=== PATIENT | female | born 1955 | race Caucasian/White ===

== ENCOUNTER → 2019-12-18 12:00 | Outpatient (BNVA) | payer MEDICARE, OTHER, SELFPAY | PROVIDERS: Family Provider Nurse Practitioner Family; PCP Nurse Practitioner Family; Visit Provider Nurse Practitioner Family | DX: L03.313 Cellulitis of chest wall (principal); L29.9 Pruritus, unspecified; W57.XXXA Bitten or stung by nonvenomous insect and other nonvenomous arthropods, initial encounter | CPT/HCPCS: 80053; 85025; 86618; 86666; 86757 ==

== ENCOUNTER 2020-09-14 14:19 | Outpatient (CLI) | payer MEDICARE, SELFPAY ==
--- NOTE | 2020-09-14 14:15 | USCV_ITS ---
Joan Arciniega Age: 65 Gender: F : 1955 Exam Date: 09/14/2020 14:52 Ordering Phys: Kelsey Morejon MD ([email or web address]) Technologist: China Cabral Exam Location: [facility] – [place] Indication: Chest pain BP: / HR: 59 Rhythm: Sinus Technical Quality: Suboptimal MEASUREMENTS (Male / Female) Normal Values 2D ECHO LV Diastolic Diameter PLAX 4.7 cm 4.2 - 5.9 / 3.9 - 5.3 cm LV Systolic Diameter PLAX 3.6 cm LV Chamber Size 4.0 cm IVS Diastolic Thickness 1.0 cm 0.6 - 1.0 / 0.6 - 0.9 cm IVS Systolic Thickness 1.2 cm LVPW Diastolic Thickness 0.8 cm 0.6 - 1.0 / 0.6 - 0.9 cm LVPW Systolic Thickness 1.1 cm RV Chamber Size 3.0 cm LVOT Diameter 2.0 cm LV Ejection Fraction 2D Teich 48.0 % LV Ejection Fraction MOD 2C 59.9 % LV Ejection Fraction 2C AL 62.0 % LA Diameter 3.6 cm LA Width 2.7 cm LA Height 5.7 cm RA Width 2.9 cm RA Height 4.6 cm Aorta at Sinotubular Diameter 2.4 cm M-MODE LV Diastolic Diameter MM 4.4 cm 4.2 - 5.9 / 3.9 - 5.3 cm LV Systolic Diameter MM 3.1 cm LV Ejection Fraction MM Teich 57.3 % IVS Diastolic Thickness MM 1.2 cm 0.6 - 1.0 / 0.6 - 0.9 cm IVS Systolic Thickness MM 1.3 cm LVPW Diastolic Thickness MM 1.5 cm 0.6 - 1.0 / 0.6 - 0.9 cm LVPW Systolic Thickness MM 1.5 cm Aortic Annulus Diameter 2.9 cm LA Ao Ratio MM 1.4 MV E Point Septal Separation 0.7 cm DOPPLER AV Peak Velocity 132.0 cm/s LVOT Peak Velocity 116.0 cm/s AV Area Cont Eq vti 2.5 cm squared AV Area Cont Eq pk 2.6 cm squared MV Area PHT 4.2 cm squared Mitral E to A Ratio 0.8 MV E' Velocity 77.0 cm/s TV Peak E Velocity 48.0 cm/s Right Atrial Pressure 3.0 mmHg PV Peak Velocity 93.0 cm/s RV Acceleration Time 0.1 s RV Ejection Time 0.3 s RV AcT/ET 0.3 FINDINGS Left Ventricle Normal left ventricular cavity size. Normal left ventricular systolic function. No regional wall motion abnormalities. Left ventricular ejection fraction is estimated at 57 %. Grade I/IV diastolic dysfunction (abnormal relaxation filling pattern), normal to mildly elevated filling pressures. Right Ventricle The right ventricle is normal in size and function. RVSP could not be calculated due to incomplete tricuspid regurgitation velocity profile. Right Atrium The right atrium is normal in size. Left Atrium The left atrium is normal in size. Mitral Valve Moderately thickened mitral valve. No mitral valve stenosis. Trace mitral valve regurgitation. Moderate mitral annular calcification. Aortic Valve Moderate aortic valve calcification. No aortic valve stenosis. No aortic valve regurgitation. Tricuspid Valve Structurally normal tricuspid valve without significant stenosis or regurgitation. Pulmonic Valve Structurally normal pulmonic valve without significant stenosis. There is no pulmonic regurgitation. Pericardium Normal pericardium without effusion. Aorta Normal ascending aorta dimension. CONCLUSIONS 1-Normal left ventricular cavity size. Normal left ventricular systolic function. No regional wall motion abnormalities. Left ventricular ejection fraction is estimated at 57 %. Grade I/IV diastolic dysfunction (abnormal relaxation filling pattern), normal to mildly elevated filling pressures. 2-Moderately thickened mitral valve. No mitral valve stenosis. Trace mitral valve regurgitation. Moderate mitral annular calcification. 3-Moderate aortic valve calcification. No aortic valve stenosis. No aortic valve regurgitation. 4-Structurally normal tricuspid valve without significant stenosis or regurgitation. Pulmonary artery systolic pressure is norm. 5-There is no pericardial effusion. 6-The right ventricle is normal in size and function. RVSP could not be calculated due to incomplete tricuspid regurgitation velocity profile. 7-Right atrial pressure is around 5 mm of mercury. 8-No significant change since the prior echocardiogram study of 10/04/2015.. lFynn Cohen MD (Electronically Signed) Final Date: 14 September 2020 20:39 S
== END 2020-09-14 14:20 | disposition home or self-care (01) ==
LOC: US 14:22
PROVIDERS: PCP Nurse Practitioner Family; Visit Provider Internal Medicine Cardiovascular Disease
DX: R07.89 Other chest pain (principal); I08.0 Rheumatic disorders of both mitral and aortic valves
CPT/HCPCS: 93306

== ENCOUNTER → 2021-09-15 12:07 | Outpatient (BNVA) | payer MEDICARE, SELFPAY | PROVIDERS: PCP Nurse Practitioner Family; Visit Provider Nurse Practitioner Family | DX: J32.0 Chronic maxillary sinusitis (principal); E78.5 Hyperlipidemia, unspecified; I10 Essential (primary) hypertension; E11.9 Type 2 diabetes mellitus without complications; E03.9 Hypothyroidism, unspecified; N95.9 Unspecified menopausal and perimenopausal disorder; Z12.39 Encounter for other screening for malignant neoplasm of breast | CPT/HCPCS: 80053; 80061; 83036; 84443 ==

== ENCOUNTER → 2021-10-09 14:07 | Outpatient (BNVA) | payer MEDICARE, SELFPAY | PROVIDERS: PCP Nurse Practitioner Family; Visit Provider Internal Medicine Cardiovascular Disease | DX: I47.1 Supraventricular tachycardia (principal); I10 Essential (primary) hypertension; E78.5 Hyperlipidemia, unspecified; I25.10 Atherosclerotic heart disease of native coronary artery without angina pectoris; E11.9 Type 2 diabetes mellitus without complications; Z79.84 Long term (current) use of oral hypoglycemic drugs | CPT/HCPCS: 99213 ==

== ENCOUNTER 2021-10-13 14:38 | Outpatient (CLI) | payer MEDICARE, SELFPAY ==
--- NOTE | 2021-10-13 14:52 | MM_ITS ---
WS: [id number] LEFT 3D TOMOSYNTHESIS DIGITAL MAMMOGRAPHY WITH CAD CLINICAL INFORMATION: HX OF BREAST CA;RT MAST COMPARISON: [id number] TECHNIQUE: 4 views of the left breast were obtained. FINDINGS: Scattered fibroglandular densities of the left breast. Punctate and lucent centered calcifications. N umerous clusters of punctate calcifications similar to previous. No suspicious focal mass, asymmetry, calcifications, or architectural distortion. No evidence of stuart gnancy. MM/[place] [id number] IMPRESSION: BI-RADS: 2-Benign FOLLOW UP: 1 Year Follow-up Recommend return to annual diagnostic mammography.
--- NOTE | 2021-10-13 15:03 | XR_ITS ---
WS: [id number] SCREENING DEXA SCAN [employer]™ CLINICAL INFORMATION: screening COMPARISON: None. FINDINGS: The L1-L4 bone mineral density measures 1.561 g/cm2. This corresponds to a T score score of 3.2 and Z score of 4.0. Left femoral neck bone mineral density measures 1.024 g/cm2. This corresponds to a T score of 0.1 and Z score of 0.9. Right femoral neck bone mineral density measures 0.970 g/cm2. This corresponds to a T score -0.3of an d Z score of 0.4. Mean femoral neck bone mineral density measures 0.997 g/cm2. This corresponds to a T score of -0.1 an d Z score of 0.7. XR/XR DEXA axial skeleton* [id number] IMPRESSION: Normal bone mineralization. Patient's FRAX calculated 10 year probability for major osteoporotic fracture i s 7.3 % and osteoporotic hip fracture is 0.5%.
== END 2021-10-13 14:39 | disposition home or self-care (01) ==
LOC: RAD 14:46
PROVIDERS: PCP Nurse Practitioner Family; Visit Provider Nurse Practitioner Family
DX: Z85.3 Personal history of malignant neoplasm of breast (principal); N95.9 Unspecified menopausal and perimenopausal disorder
CPT/HCPCS: 77061; 77080

== ENCOUNTER → 2021-12-20 09:36 | Outpatient (BNVA) | payer MEDICARE, SELFPAY | PROVIDERS: PCP Nurse Practitioner Family; Visit Provider Nurse Practitioner Family | DX: S62.616A Displaced fracture of proximal phalanx of right little finger, initial encounter for closed fracture (principal); X58.XXXA Exposure to other specified factors, initial encounter; M79.641 Pain in right hand | CPT/HCPCS: 73130 ==

== ENCOUNTER → 2021-12-22 10:33 | Outpatient (BNVA) | payer MEDICARE, SELFPAY | PROVIDERS: PCP Nurse Practitioner Family; Referring Provider Nurse Practitioner Family; Visit Provider Nurse Practitioner Family | DX: S62.646A Nondisplaced fracture of proximal phalanx of right little finger, initial encounter for closed fracture (principal); W23.0XXA Caught, crushed, jammed, or pinched between moving objects, initial encounter | CPT/HCPCS: 99213; 99214 ==

== ENCOUNTER → 2022-01-15 14:12 | Outpatient (BNVA) | payer MEDICARE, SELFPAY | PROVIDERS: PCP Nurse Practitioner Family; Visit Provider Nurse Practitioner Family | DX: S62.646A Nondisplaced fracture of proximal phalanx of right little finger, initial encounter for closed fracture (principal); X58.XXXA Exposure to other specified factors, initial encounter | CPT/HCPCS: 73130 ==

== ENCOUNTER → 2022-01-24 17:26 | Outpatient (BNVA) | payer MEDICARE, SELFPAY | PROVIDERS: PCP Nurse Practitioner Family; Visit Provider Nurse Practitioner Family | DX: S40.861A Insect bite (nonvenomous) of right upper arm, initial encounter (principal); W57.XXXA Bitten or stung by nonvenomous insect and other nonvenomous arthropods, initial encounter | CPT/HCPCS: 86618; 86666; 86757 ==

== ENCOUNTER → 2022-05-10 15:35 | Outpatient (BNVA) | payer MEDICARE, SELFPAY | PROVIDERS: PCP Nurse Practitioner Family; Visit Provider Podiatrist Foot & Ankle Surgery | DX: I73.9 Peripheral vascular disease, unspecified (principal); E11.8 Type 2 diabetes mellitus with unspecified complications; M20.41 Other hammer toe(s) (acquired), right foot; M20.42 Other hammer toe(s) (acquired), left foot; M21.41 Flat foot [pes planus] (acquired), right foot; M21.42 Flat foot [pes planus] (acquired), left foot; E11.42 Type 2 diabetes mellitus with diabetic polyneuropathy; L60.3 Nail dystrophy; Z79.84 Long term (current) use of oral hypoglycemic drugs | CPT/HCPCS: 11721 ==

== ENCOUNTER → 2022-05-22 11:36 | Outpatient (BNVA) | payer MEDICARE, SELFPAY | PROVIDERS: PCP Nurse Practitioner Family; Visit Provider Nurse Practitioner Family | DX: R10.12 Left upper quadrant pain (principal); I10 Essential (primary) hypertension; E78.5 Hyperlipidemia, unspecified; E11.9 Type 2 diabetes mellitus without complications; E03.9 Hypothyroidism, unspecified; Z98.84 Bariatric surgery status | CPT/HCPCS: 74018; 80053; 80061; 82043; 82607; 82746; 83036; 83550; 84443 ==

== ENCOUNTER 2022-05-30 08:32 | Oncology outpatient (recurring) (ONCR) | payer MEDICARE, SELFPAY | END 2022-05-30 23:59 | disposition home or self-care (01) | LOC: ONCMED 08:32 | PROVIDERS: PCP Nurse Practitioner Family; Visit Provider Internal Medicine Medical Oncology | DX: C50.811 Malignant neoplasm of overlapping sites of right female breast (principal); Z17.1 Estrogen receptor negative status [ER-]; Z90.11 Acquired absence of right breast and nipple; C79.51 Secondary malignant neoplasm of bone; Z92.21 Personal history of antineoplastic chemotherapy | CPT/HCPCS: 99204 ==

== ENCOUNTER 2022-06-23 14:59 | Emergency (ER) | payer MEDICARE, SELFPAY ==
[2022-06-23 15:05] VITALS: BP 153/84; PULSE 86; RESP 18; TEMP 36.6; O2SAT 98; BMI 32.8
--- NOTE | 2022-06-23 16:00 | W.ED.EXTPRO ---
HPI - Extremity Problem General: Chief complaint: Extremity Injury, Upper Stated complaint: fall, right upper arm injury Time Seen by Provider: 06/23/22 16:00 History of Present Illness: Ms. Núñez is a 67-year-old lady with history of hypertension, hyperlipidemia, diabetes, history of breast cancer status post completion of therapy presenting to the emergency department due to arm pain. She reports being at her baseline health and tripping around 1:00 yesterday over a lump on a rug. She denies specific provoking events or factors. He immediately had pain and since that time has had continued pain in the right upper extremity. Denies head strike or loss of consciousness. Denies other pain. No other specific changes in health, exacerbating, or alleviating factors identified. Onset (ago): day(s) Pain Consistency: constant Location: right and upper extremity Quality: stabbing and aching Exacerbating factors: range of motion and palpation Review of Systems General: Reports: 10 or more systems reviewed and unremarkable except in HPI and below PFSH ED PFSH: Medical History ASHD (arteriosclerotic heart disease) Diabetes mellitus Hx of osteomyelitis HX: breast cancer Hyperlipidemia Hypertension Hypothyroidism Neuropathy Proximal humerus fracture Surgical History History of bariatric surgery (2015) Gastric sleeve procedure History of rectal surgery (1996) Repair of perirectal abscess Hx of cholecystectomy (2015) Hx of total mastectomy of right breast (2003) Right modified radical mastectomy with TRAM flap reconstruction Family History Grandfather CAD (coronary artery disease) Stroke Family/Other Diabetes Father Hypertension Dementia Lung disease Mother Cancer Denies family history of Clotting disorder Chronic kidney disease (CKD) Suicide Anesthesia complication Bleeding disorder Social History Smoking and tobacco status: never smoked Second hand smoke exposure: No Alcohol intake: never Lives independently: Yes Household members: spouse Marital status: Current occupational status: retired History of recent travel: No Current gender identity: Female Physical Exam Const: COMMON NORMALS: alert GENERAL APPEARANCE: cooperative and well developed HENMT: COMMON NORMALS: normocephalic and atraumatic HEAD & SCALP: normocephalic and atraumatic OTHER: No chakraborty signs or raccoon eyes. No otorrhea or rhinorrhea. Jaw alignment normal. Dentition baseline. No obvious bony step-offs. No septal hematoma. No evidence of ocular entrapment. Eye: COMMON NORMALS: conjunctivae normal CONJUNCTIVA: Yes conjunctivae normal SCLERA: sclerae normal Neck/C-Spine: COMMON NORMALS: full ROM and supple GENERAL: Yes trachea midline Resp: COMMON NORMALS: clear to auscultation bilaterally EFFORT & INSPECTION: Yes able to speak in complete sentences AUSCULTATION: clear to auscultation bilaterally Cardio: COMMON NORMALS: regular rate and regular rhythm RATE: regular rate RHYTHM: regular rhythm GI: COMMON NORMALS: Soft to palpation PALPATION: Yes Soft to palpation and No Tenderness to palpation present (GI) PERCUSSION: normal to percussion Extremity: NARRATIVE EXTREMITY EXAM: Left lower humerus tenderness palpation, distal CMS intact. GENERAL: Yes normal exam except as noted and No edema Neuro: COMMON NORMALS: moves all extremities SENSORIUM/ORIENTATION: Yes alert and No Orientation impaired Psych: COMMON NORMALS: mental status grossly normal and Normal thought process present THOUGHT PROCESS: Normal thought process present Course Vital Signs: Vital signs: Vital Signs Temperature 97.9 F 06/23/22 15:05 Pulse Rate 86 06/23/22 15:05 Respiratory Rate 16 06/23/22 18:07 Blood Pressure 153/84 06/23/22 15:05 Pulse Oximetry 98 06/23/22 15:05 Oxygen Delivery Me thod 06/23/22 15:05 MDM - Extremity (Nontraumatic) Medical Decision Making 67-year-old lady presenting with trip and fall and arm pain. Exam as above. Head to toe exam performed without additional areas of concern. X-ray positive for proximal humerus fracture. Patient placed in coaptation splint and sling. Patient reports having tramadol at home and this has been taking care of her pain. Most likely etiology of patient's symptoms is proximal humerus fracture which can be followed in outpatient setting by orthopedics. The results of ED evaluation were discussed with the patient including prescriptions and/or symptomatic cares (if applicable) including appropriate and responsible use, followup plan, and return precautions. The patient verbalized understanding and felt safe for discharge. Medical Records I reviewed the patient's medical records. Lab Data I reviewed the patient's lab results. Radiology Impressions Elbow X-Ray 06/23/22 16:05 IMPRESSION: Somewhat limited exam. No obvious acute fracture or dislocation. Humerus X-Ray 06/23/22 16:05 IMPRESSION: No mid/distal humeral injury. Proximal humeral fracture as described on humeral exam report. Shoulder X-Ray 06/23/22 16:05 IMPRESSION: Proximal humeral fracture as described. Discharge Plan Discharge Patient Disposition: Home Clinical Impression: Fracture of proximal end of humerus Condition: Stable Prescriptions: New cyclobenzaprine 10 mg tablet 10 mg PO TID PRN (Reason: muscle spasm) Qty: 30 0RF No Action allopurinol 300 mg tablet 300 mg PO DAILY potassium chloride 10 mEq tablet extended release 10 meq PO DAILY magnesium oxide 400 mg magnesium capsule 400 mg PO BID (DME) Diabetic Shoes with 3 pairs of molded inserts See Rx Instructions .ROUTE .MEDSUPPLY Qty: 1 0RF Rx Instructions: As directed (DME) Diabetic shoes with inserts See Rx Instructions .Route .MEDSUPPLY Qty: 1 0RF Rx Instructions: As directed (DME) cuff and collar brace See Rx Instructions .Route .MEDSUPPLY Qty: 1 0RF Rx Instructions: As directed cephalexin 500 mg capsule 500 mg PO TID 7 Days Qty: 21 0RF glipizide 5 mg tablet extended release 24hr 5 mg PO BID Qty: 180 0RF metformin 500 mg tablet extended release 24 hr 500 mg PO BID Qty: 180 0RF metoprolol succinate 25 mg tablet extended release 24 hr 25 mg PO DAILY Qty: 90 0RF Discharge Orders: Discharge ED (Routine); Ordered 06/23/22 Ordered By: Bennie Mahoney Referrals: China Giron NP [Primary Care Provider] - Discharge Diet: Usual diet Discharge Activity: Limit activity as instructed Patient Instructions: Proximal Humerus Fracture (ED), Opioid Safety, Pain Management Activity Restrictions/Additional Instructions: Thank you for visiting the emergency department. You were seen and evaluated for arm pain after a fall. You are found to have a proximal humerus fracture. This will be splinted and I will refer you for orthopedic follow-up. You may use [id number] medications such as acetaminophen and ibuprofen for pain however please do not exceed the daily recommended dosage as listed on the packaging and please keep in mind that many namebrand medications contain the same active ingredients. Please avoid these medications if previously instructed to do so by another physician due to other underlying medical condition. Please be cautious using opioids. I will prescribe a muscle relaxer as muscle spasms and pain are likely. Return to the emergency department for uncontrolled pain, any numbness or tingling, any change in ability to move your fingers, or anything else that you are concerned about a feel needs emergency department evaluation. 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
--- NOTE | 2022-06-23 16:05 | XRR_ITS ---
PROCEDURE INFORMATION: Exam: XR Right Elbow Exam date and time: 06/23/2022 4:24 PM Age: 67 years old Clinical indication: Injury or trauma; Fall; Blunt trauma (contusions or hematomas); Elbow; Right TECHNIQUE: Imaging protocol: Radiologic exam of the Right elbow. Views: 3 or more views. COMPARISON: CR (UP EX, ) 06/23/2022 4:20 PM FINDINGS: Bones/joints: Lateral view suboptimally assessed and joint diffusion is difficult to assess. No obvious acute fracture dislocation otherwise. Tiny chronic enthesophytes at the medial and lateral epicondylar regions. Soft tissues: No gross soft tissue abnormalities however extensive garment artifacts are noted. Other findings: Three views submitted. XR/XR elbow RT min 3V* [id number] IMPRESSION: Somewhat limited exam. No obvious acute fracture or dislocation.
--- NOTE | 2022-06-23 16:05 | XRR_ITS ---
PROCEDURE INFORMATION: Exam: XR Right Humerus Exam date and time: 06/23/2022 4:20 PM Age: 67 years old Clinical indication: Injury or trauma; Fall; Blunt trauma (contusions or hematomas); Arm, upper; Right TECHNIQUE: Imaging protocol: Radiologic exam of the Right humerus. Views: 2 or more views. COMPARISON: CR (CHEST, ) 06/23/2022 4:16 PM FINDINGS: Bones/joints: Proximal humeral fracture as described on humeral exam report. No acute fracture dislocation of the mid/distal humerus. Soft tissues: Multiple surgical clips in the right chest wall region. Other findings: Two views submitted. XR/[place] [id number] IMPRESSION: No mid/distal humeral injury. Proximal humeral fracture as described on humeral exam report.
--- NOTE | 2022-06-23 16:05 | XRR_ITS ---
PROCEDURE INFORMATION: Exam: XR Right Shoulder Exam date and time: 06/23/2022 4:16 PM Age: 67 years old Clinical indication: Injury or trauma; Fall; Blunt trauma (contusions or hematomas); Shoulder; Right TECHNIQUE: Imaging protocol: Radiologic exam of the Right shoulder. Views: 2 or more views. COMPARISON: CT chest abd pel w con* 04/16/2022 6:57 PM FINDINGS: Bones/joints: Minimal chronic AC joint hypertrophy. There is a proximal humeral fracture involving the humeral neck and greater tuberosity with slight impaction and displacement and mild angulation. No obvious glenohumeral joint dislocation. The fracture may also extend to the lesser tuberosity. Soft tissues: Normal. Other findings: Three views submitted. XR/XR shoulder RT min 2V* [id number] IMPRESSION: Proximal humeral fracture as described.
[2022-06-23] MEDS: ketorolac 30 mg/mL INJ IM (17:10)
[2022-06-23] MEDS: acetaminophen 500 mg Tablet 1000 MG PO (17:10)
[2022-06-23 18:07] VITALS: RESP 16
[2022-06-23] MEDS: morphine 4 mg/mL SDV 1 mL IM (18:07)
--- NOTE | 2022-06-26 08:58 | DCPLANNER ---
Addendum entered by Zayda Mondragon 07/06/22 11:07: Patient had a follow up appointment scheduled with ortho - patient did attend appointment. Addendum entered by Zayda Mondragon 06/26/22 15:14: Patient has a follow up appointment scheduled for , June 28, 2022 at 3:[address] Ervin at ortho. Clinic will call patient with appointment information. Original Note: manager oncology had message to schedule a follow up appointment for patient with ortho. manager oncology sent patients information to the front office staff at ortho. Patients information will be printed and reviewed. Clinic will call patient with appointment information.
== END 2022-06-23 19:03 | disposition home or self-care (01) ==
PROVIDERS: Emergency Provider Emergency Medicine; PCP Nurse Practitioner Family
DX: S42.201A Unspecified fracture of upper end of right humerus, initial encounter for closed fracture (principal); Z79.84 Long term (current) use of oral hypoglycemic drugs; E11.9 Type 2 diabetes mellitus without complications; Z85.3 Personal history of malignant neoplasm of breast; E78.5 Hyperlipidemia, unspecified; I10 Essential (primary) hypertension; W18.09XA Striking against other object with subsequent fall, initial encounter
CPT/HCPCS: 29125; 73030; 73060; 73080; 96372; 99284; J1885; J2270

== ENCOUNTER 2022-06-28 16:16 | Outpatient (CLI) | payer MEDICARE, SELFPAY | END 2022-06-28 16:17 | disposition home or self-care (01) | LOC: SPT 16:17 | PROVIDERS: PCP Nurse Practitioner Family; Visit Provider Student in an Organized Health Care Education/Training Program | DX: Z46.89 Encounter for fitting and adjustment of other specified devices (principal); S42.201D Unspecified fracture of upper end of right humerus, subsequent encounter for fracture with routine healing; X58.XXXD Exposure to other specified factors, subsequent encounter | CPT/HCPCS: 97760; 99204 ==

== ENCOUNTER → 2022-07-12 14:53 | Outpatient (BNVA) | payer MEDICARE, SELFPAY | PROVIDERS: PCP Nurse Practitioner Family; Visit Provider Student in an Organized Health Care Education/Training Program | DX: S42.201A Unspecified fracture of upper end of right humerus, initial encounter for closed fracture (principal); X58.XXXA Exposure to other specified factors, initial encounter | CPT/HCPCS: 73030; 99213 ==

== ENCOUNTER → 2022-08-09 13:53 | Outpatient (BNVA) | payer MEDICARE, SELFPAY | PROVIDERS: PCP Nurse Practitioner Family; Visit Provider Student in an Organized Health Care Education/Training Program | DX: E11.8 Type 2 diabetes mellitus with unspecified complications (principal); S42.201A Unspecified fracture of upper end of right humerus, initial encounter for closed fracture; I73.9 Peripheral vascular disease, unspecified; X58.XXXA Exposure to other specified factors, initial encounter; M20.41 Other hammer toe(s) (acquired), right foot; M20.42 Other hammer toe(s) (acquired), left foot; M21.41 Flat foot [pes planus] (acquired), right foot; M21.42 Flat foot [pes planus] (acquired), left foot; E11.42 Type 2 diabetes mellitus with diabetic polyneuropathy; L60.3 Nail dystrophy; Z79.84 Long term (current) use of oral hypoglycemic drugs | CPT/HCPCS: 11721; 73030; 99213 ==

== ENCOUNTER 2022-08-17 06:00 | Outpatient (RCR) | payer MEDICARE, SELFPAY | END 2022-08-28 23:59 | disposition home or self-care (01) | LOC: TPT 06:00 | PROVIDERS: PCP Nurse Practitioner Family; Visit Provider Student in an Organized Health Care Education/Training Program | DX: S42.211D Unspecified displaced fracture of surgical neck of right humerus, subsequent encounter for fracture with routine healing (principal); X58.XXXD Exposure to other specified factors, subsequent encounter | CPT/HCPCS: 97110; 97140; 97162 ==

== ENCOUNTER 2022-08-29 06:00 | Outpatient (RCR) | payer MEDICARE, SELFPAY | END 2022-09-21 23:59 | disposition home or self-care (01) | LOC: TPT 06:00 | PROVIDERS: PCP Nurse Practitioner Family; Visit Provider Student in an Organized Health Care Education/Training Program | DX: S42.211D Unspecified displaced fracture of surgical neck of right humerus, subsequent encounter for fracture with routine healing (principal); X58.XXXD Exposure to other specified factors, subsequent encounter | CPT/HCPCS: 97110; 97140 ==

== ENCOUNTER → 2022-09-20 14:35 | Outpatient (BNVA) | payer MEDICARE, SELFPAY | PROVIDERS: PCP Nurse Practitioner Family; Visit Provider Student in an Organized Health Care Education/Training Program | DX: S42.201A Unspecified fracture of upper end of right humerus, initial encounter for closed fracture (principal); X58.XXXA Exposure to other specified factors, initial encounter | CPT/HCPCS: 73030; 99213 ==

== ENCOUNTER 2022-10-22 08:26 | Outpatient (CLI) | payer MEDICARE, SELFPAY ==
--- NOTE | 2022-10-22 09:23 | MM_ITS ---
WS: [id number] DIAGNOSTIC LEFT DIGITAL TOMOSYNTHESIS MAMMOGRAPHY WITH CAD. HISTORY: ANNUAL - HX BREAST CA;RT MST COMPARISON: 10/13/2021, 10/23/2017 Technique: CC, MLO and ML views. Breast composition: The breasts are heterogeneously dense, which may obscure small masses. Scattered and grouped calcifications within the breast. Coarse calcifications are similar to prior studies. MM/[place] [id number] IMPRESSION: BI-RADS: 2-Benign FOLLOW UP: 1 Year Follow-up
== END 2022-10-22 08:27 | disposition home or self-care (01) ==
LOC: RAD 08:31
PROVIDERS: PCP Nurse Practitioner Family; Visit Provider Nurse Practitioner Family
DX: Z85.3 Personal history of malignant neoplasm of breast (principal)
CPT/HCPCS: 77061; G0279

== ENCOUNTER → 2022-11-01 08:28 | Outpatient (BNVA) | payer MEDICARE, SELFPAY | PROVIDERS: PCP Nurse Practitioner Family; Visit Provider Podiatrist Foot & Ankle Surgery | DX: I73.9 Peripheral vascular disease, unspecified (principal); M20.41 Other hammer toe(s) (acquired), right foot; M20.42 Other hammer toe(s) (acquired), left foot; M21.41 Flat foot [pes planus] (acquired), right foot; M21.42 Flat foot [pes planus] (acquired), left foot; E11.42 Type 2 diabetes mellitus with diabetic polyneuropathy; L60.3 Nail dystrophy; Z79.84 Long term (current) use of oral hypoglycemic drugs | CPT/HCPCS: 11721 ==

== ENCOUNTER → 2022-12-24 11:56 | Outpatient (BNVA) | payer MEDICARE, SELFPAY | PROVIDERS: PCP Nurse Practitioner Family; Visit Provider Nurse Practitioner Family | DX: R00.0 Tachycardia, unspecified (principal); I48.91 Unspecified atrial fibrillation; F41.9 Anxiety disorder, unspecified; F32.A Depression, unspecified; I25.10 Atherosclerotic heart disease of native coronary artery without angina pectoris; E11.9 Type 2 diabetes mellitus without complications; C50.411 Malignant neoplasm of upper-outer quadrant of right female breast; Z80.9 Family history of malignant neoplasm, unspecified; Z85.3 Personal history of malignant neoplasm of breast | CPT/HCPCS: 80053; 80061; 83036; 84439; 84443; 84481; 86304 ==

== ENCOUNTER → 2023-01-07 12:05 | Outpatient (BNVA) | payer MEDICARE, SELFPAY | PROVIDERS: PCP Nurse Practitioner Family; Visit Provider Internal Medicine Cardiovascular Disease | DX: I25.10 Atherosclerotic heart disease of native coronary artery without angina pectoris (principal); I48.91 Unspecified atrial fibrillation; E78.2 Mixed hyperlipidemia; I10 Essential (primary) hypertension; I47.1 Supraventricular tachycardia; E11.42 Type 2 diabetes mellitus with diabetic polyneuropathy; Z79.84 Long term (current) use of oral hypoglycemic drugs; I73.9 Peripheral vascular disease, unspecified; Z79.01 Long term (current) use of anticoagulants | CPT/HCPCS: 99213 ==

== ENCOUNTER → 2023-01-09 10:01 | Outpatient (BNVA) | payer MEDICARE, SELFPAY | PROVIDERS: PCP Nurse Practitioner Family; Visit Provider Podiatrist Foot & Ankle Surgery | DX: I73.9 Peripheral vascular disease, unspecified (principal); L60.3 Nail dystrophy; E11.42 Type 2 diabetes mellitus with diabetic polyneuropathy; M21.42 Flat foot [pes planus] (acquired), left foot; M21.41 Flat foot [pes planus] (acquired), right foot; M20.42 Other hammer toe(s) (acquired), left foot; M20.41 Other hammer toe(s) (acquired), right foot; Z79.84 Long term (current) use of oral hypoglycemic drugs | CPT/HCPCS: 11721 ==

== ENCOUNTER → 2023-03-13 10:55 | Outpatient (BNVA) | payer MEDICARE, SELFPAY | PROVIDERS: PCP Nurse Practitioner Family; Visit Provider Podiatrist Foot & Ankle Surgery | DX: I73.9 Peripheral vascular disease, unspecified (principal); M20.41 Other hammer toe(s) (acquired), right foot; M20.42 Other hammer toe(s) (acquired), left foot; M21.41 Flat foot [pes planus] (acquired), right foot; M21.42 Flat foot [pes planus] (acquired), left foot; E11.42 Type 2 diabetes mellitus with diabetic polyneuropathy; L60.3 Nail dystrophy; Z79.84 Long term (current) use of oral hypoglycemic drugs | CPT/HCPCS: 11721 ==

== ENCOUNTER → 2023-04-16 10:20 | Outpatient (BNVA) | payer MEDICARE, SELFPAY | PROVIDERS: PCP Nurse Practitioner Family; Visit Provider Nurse Practitioner Family | DX: E11.42 Type 2 diabetes mellitus with diabetic polyneuropathy (principal); I48.91 Unspecified atrial fibrillation; I10 Essential (primary) hypertension; E03.9 Hypothyroidism, unspecified; I25.10 Atherosclerotic heart disease of native coronary artery without angina pectoris; M25.50 Pain in unspecified joint; E78.2 Mixed hyperlipidemia; M85.80 Other specified disorders of bone density and structure, unspecified site; M10.9 Gout, unspecified | CPT/HCPCS: 80053; 80061; 83036; 84443 ==

== ENCOUNTER → 2023-04-18 10:47 | Outpatient (BNVA) | payer MEDICARE, SELFPAY | PROVIDERS: PCP Nurse Practitioner Family; Visit Provider Internal Medicine Cardiovascular Disease | DX: I48.91 Unspecified atrial fibrillation (principal); E78.5 Hyperlipidemia, unspecified; I10 Essential (primary) hypertension; Z86.73 Personal history of transient ischemic attack (TIA), and cerebral infarction without residual deficits | CPT/HCPCS: 99214 ==

== ENCOUNTER 2023-05-10 13:04 | Outpatient (CLI) | payer MEDICARE, SELFPAY ==
--- NOTE | 2023-05-10 13:30 | USCV_ITS ---
Joan Arciniega Age: 68 Gender: F : 1955 Exam Date: 05/10/2023 13:31 Ordering Phys: Kelsey Morejon MD ([email or web address]) Technologist: LAVONNE Exam Location: [facility] [place] Indication: A FIB BP: 126 / 70 HR: 64 Rhythm: Sinus Technical Quality: Adequate MEASUREMENTS (Male / Female) Normal Values 2D ECHO LVOT Diameter 2.0 cm LV Ejection Fraction MOD 2C 41.9 % LV Ejection Fraction 2C AL 41.9 % LA Diameter 3.9 cm LA Width 3.1 cm LA Height 5.4 cm RA Width 3.8 cm RA Height 4.5 cm Aorta at Sinotubular Diameter 2.1 cm IVC Diameter 1.8 cm M-MODE Aortic Annulus Diameter 2.0 cm LA Ao Ratio MM 1.8 MV E Point Septal Separation 1.2 cm DOPPLER AV Peak Velocity 127.0 cm/s LVOT Peak Velocity 97.0 cm/s AV Area Cont Eq vti 2.2 cm squared AV Area Cont Eq pk 2.4 cm squared MV Peak Velocity 141.0 cm/s MV Area PHT 5.1 cm squared Mitral E to A Ratio 1.9 MV E' Velocity 85.5 cm/s Mitral E to MV E' Ratio 18.9 Mitral E to LV E' Lateral Ratio 16.8 Mitral E to LV E' Septal Ratio 22.0 TR Peak Velocity 202.3 cm/s TR Peak Gradient 16.4 mmHg TR Mean Velocity 152.0 cm/s TR Mean Gradient 10.1 mmHg TR Velocity Time Integral 57.6 cm TV Peak E Velocity 42.0 cm/s Right Atrial Pressure 3.0 mmHg Pulmonary Artery Systolic Pressu 19.4 mmHg PV Peak Velocity 94.0 cm/s RV Acceleration Time 0.2 s RV Ejection Time 0.3 s RV AcT/ET 0.4 FINDINGS Left Ventricle The left-ventricular peers to be mildly dilated. Mild diffuse hypokinesia of the left-ventricular. Ejection fraction of 42%.Grade I/IV diastolic dysfunction (abnormal relaxation filling pattern), normal to mildly elevated filling pressures. Right Ventricle The right ventricle is normal in size and function. Right Atrium Upper limit of normal size Left Atrium Mildly increased left atrial size. Mitral Valve Moderate mitral valve regurgitation. Aortic Valve Thickened aortic valve. Tricuspid Valve Trace tricuspid valve regurgitation. Pulmonic Valve Trace pulmonary valve regurgitation. Pericardium No pericardial effusion. Aorta Normal aortic annulus size. IVC The inferior vena cava appears normal. CONCLUSIONS The left-ventricular peers to be mildly dilated. Mild diffuse hypokinesia of the left-ventricular. Ejection fraction of 42%.Grade I/IV diastolic dysfunction (abnormal relaxation filling pattern), normal to mildly elevated filling pressures. Mildly increased left atrial size. Moderate mitral valve regurgitation. Thickened aortic valve. Trace tricuspid valve regurgitation. Estimated pulmonary artery peak systolic pressure 19 mmHg There is no pericardial effusion. There are no intracardiac masses. Compared to the study from 09/14/2020, there is a drop in the LV ejection fraction and worsening of the mitral regurgitation. Dr Kelsey Morejon MD [facility] (Electronically Signed) Final Date: 13 May 2023 20:19 S
== END 2023-05-10 13:05 | disposition home or self-care (01) ==
LOC: RAD 13:05
PROVIDERS: PCP Nurse Practitioner Family; Visit Provider Internal Medicine Cardiovascular Disease
DX: R06.09 Other forms of dyspnea (principal); I34.0 Nonrheumatic mitral (valve) insufficiency
CPT/HCPCS: 93306

== ENCOUNTER → 2023-05-14 09:07 | Outpatient (BNVA) | payer MEDICARE, SELFPAY | PROVIDERS: PCP Nurse Practitioner Family; Visit Provider Nurse Practitioner Family | DX: M25.50 Pain in unspecified joint (principal); Z82.61 Family history of arthritis; I48.91 Unspecified atrial fibrillation | CPT/HCPCS: 85651; 86140; 86160; 86162; 86200; 86235; 86255; 86376; 86431 ==

== ENCOUNTER → 2023-06-12 13:08 | Outpatient (BNVA) | payer MEDICARE, SELFPAY | PROVIDERS: PCP Nurse Practitioner Family; Visit Provider Podiatrist Foot & Ankle Surgery | DX: I73.9 Peripheral vascular disease, unspecified (principal); M20.41 Other hammer toe(s) (acquired), right foot; M20.42 Other hammer toe(s) (acquired), left foot; M21.41 Flat foot [pes planus] (acquired), right foot; M21.42 Flat foot [pes planus] (acquired), left foot; E11.42 Type 2 diabetes mellitus with diabetic polyneuropathy; L60.3 Nail dystrophy; Z79.84 Long term (current) use of oral hypoglycemic drugs | CPT/HCPCS: 11721 ==

== ENCOUNTER → 2023-09-11 13:12 | Outpatient (BNVA) | payer MEDICARE, SELFPAY | PROVIDERS: PCP Nurse Practitioner Family; Visit Provider Podiatrist Foot & Ankle Surgery | DX: E11.8 Type 2 diabetes mellitus with unspecified complications (principal); I73.9 Peripheral vascular disease, unspecified; E11.42 Type 2 diabetes mellitus with diabetic polyneuropathy; L60.3 Nail dystrophy; Z79.84 Long term (current) use of oral hypoglycemic drugs | CPT/HCPCS: 11721 ==

== ENCOUNTER → 2023-10-14 10:51 | Outpatient (BNVA) | payer MEDICARE, SELFPAY | PROVIDERS: PCP Nurse Practitioner Family; Visit Provider Internal Medicine Rheumatology | DX: Z79.899 Other long term (current) drug therapy (principal); M19.041 Primary osteoarthritis, right hand; M19.071 Primary osteoarthritis, right ankle and foot; M19.042 Primary osteoarthritis, left hand | CPT/HCPCS: 36415; 73130; 73630; 80076; 82306; 82565; 83036; 83520; 84550; 85025; 85651; 99204 ==

== ENCOUNTER 2023-10-24 08:20 | Outpatient (CLI) | payer MEDICARE, SELFPAY ==
[2023-10-24 08:25] VITALS: BMI 34.7
--- NOTE | 2023-10-24 08:57 | NMCV_ITS ---
NM catracho perf SPECT r/s* [id number] Joan Arciniega Age: 68 Gender: F : 1955 Exam Date: 10/24/2023 09:17 Ordering Phys: Kelsey Morejon MD ([email or web address]) Technologist: JESS Gaona Exam Location: [facility] Indications: SHORTNESS OF BREATH STRESS TEST [facility] IMAGE PROTOCOL Rest/Stress 1 Lexiscan Day Radiopharmaceutical Dose (mCi) Administration Site Administered by Rest: Tc-99m 10.9 IV JESS Benito Sestamibi Stress:Tc-99m 32.8 IV JESS Benito Sestamibi Rest: 24-Oct-2023 60 Discovery 630 Stress: 24-Oct-2023 30 Discovery 630 0.4mg Lexiscan. Images obtained in supine and prone position. SPECT RESULTS Technical Quality: Excellent Raw Data Analysis: Normal Image Corrections: No attenuation or motion correction applied Summed Stress Score: 5 Summed Rest Score: 0 Summed Difference Score: 5 PERFUSION FINDINGS Moderate area of moderately decreased tracer uptake involving the basal, mid and apical inferior wall region, with complete reversibility FUNCTIONAL RESULTS (calculated via Gated SPECT) Stress Image LV EF (%): 37 Stress EDV (mL):152 TID: 1.01 Stress ESV (mL):96 FUNCTIONAL FINDINGS: Segmental wall motion analysis revealed diffuse hypokinesia of the left ventricular ejection fraction of 37%. IMPRESSIONS 1. Myocardial perfusion imaging revealing moderate area of reversible defect involving the inferior wall region suggesting ischemia in the distribution of the right coronary artery. 2. The LV ejection fraction estimated to be 37%. 3. LV wall motion analysis revealing diffuse hypokinesia of the left ventricle 4. Mildly dilated LV cavity with end-systolic volume of 96 ml. No similar previous studies are available for comparison Dr Kelsey Morejon MD [facility] (Electronically Signed) Final Date: 24 October 2023 16:29 S
--- NOTE | 2023-10-24 08:57 | ECG_ITS ---
[facility] Test Date: 2023-10-24 Pat Name: Joan Arciniega Department: Room: Gender: Female Tie [employer] Operator: : 1955 Requested By: Kelsey Morejon Order Number: [id number] Stan MD: Kelsey Morejon M.D. Interpretive Statements NAME OF STUDY: LEXISCAN SESTAMIBI STRESS TEST INDICATION: Decreased EF PROCEDURE: At the baseline, the EKG revealed sinus rhythm with a frequent supraventricular ectopics. Some nonspecific T wave changes. Poor R wave progression.. The baseline heart was 98 bpm with a blood pressue of 107/67 mm of Hg Lexiscan was infused over a period of 20 seconds. A total of 0.4 milligrams of Lexiscan was infused. The stress phase was continued for a total of 5 minutes. Heart rate at the end of the stress phase was 120 bpm with a blood pressure 97/66 mm of Hg. The EKG at the peak infusion revealed sinus rhythm with frequent PACs and short runs of PAT's. Sestamibi was injected 20 seconds after the Lexiscan infusion. Heart rate at the end of the recovery phase was 102 bpm with a blood pressure of 97/54 mm of Hg. CONCLUSION: 1. Lexiscan induced atrial arrhythmiao 2. No LexiScan induced chest pain . 3. Normal blood pressure and heart rate response 4. Sestamibi/sestamibi perfusion scan pending; see separate report. Electronically Signed On 10-31-2023 8:03:27 CDT by Kelsey Morejon M.D. [email or web address]
[2023-10-24] MEDS: regadenoson 0.4 Mg/5 ml Syringe 0.400000000000000022 MG IVP (10:04)
[2023-10-24 10:08] VITALS: BP 97/54; PULSE 101
== END 2023-10-24 08:21 | disposition home or self-care (01) ==
LOC: CDL 08:21
PROVIDERS: PCP Nurse Practitioner Family; Visit Provider Internal Medicine Cardiovascular Disease
DX: R06.02 Shortness of breath (principal); I49.8 Other specified cardiac arrhythmias
CPT/HCPCS: 36415; 78452; 93017; 96374; A9500; J2785

== ENCOUNTER → 2023-11-14 11:24 | Outpatient (BNVA) | payer MEDICARE, SELFPAY | PROVIDERS: PCP Nurse Practitioner Family; Visit Provider Internal Medicine Cardiovascular Disease | DX: R94.39 Abnormal result of other cardiovascular function study (principal); I25.10 Atherosclerotic heart disease of native coronary artery without angina pectoris; I48.19 Other persistent atrial fibrillation; Z79.01 Long term (current) use of anticoagulants; I10 Essential (primary) hypertension; E78.2 Mixed hyperlipidemia; I73.9 Peripheral vascular disease, unspecified | CPT/HCPCS: 99214 ==

== ENCOUNTER → 2023-12-10 15:00 | Outpatient (BNVA) | payer MEDICARE, SELFPAY | PROVIDERS: PCP Nurse Practitioner Family; Visit Provider Internal Medicine Cardiovascular Disease | DX: I48.19 Other persistent atrial fibrillation (principal) | CPT/HCPCS: 85610 ==

== ENCOUNTER 2023-12-13 07:57 | Observation (INO) | payer MEDICARE, SELFPAY ==
[2023-12-13] VITALS (7 sets, daily range): BP systolic 105–115; BP diastolic 63–85; PULSE 56–100; RESP 14–18; TEMP 36.3–36.6; O2SAT 96–97
--- NOTE | 2023-12-13 06:00 | XACV_ITS ---
Exam Room: 2 Ht: 160 cm Wt: 89 kg BSA: 2.03 m2 Gender: Female : 1955 Any Known Allergies: Other Exam Priority: Routine Procedure(s): Procedure Description: Diagnostic procedure Procedure Description: Left Heart Catheterization Procedure Description: Left ventriculography Procedure Description: Coronary Angiography Jean-Pierre JACKSON; Diagnostic Cath Status: Elective Diagnostic Findings * The left main is a short medium caliber vessel with no significant lesions. * The left anterior descending artery is a medium caliber vessel which appears to wraparound the LV apex minimally. The artery was found to be very tortuous. No significant stenotic lesions were noted. 70 mm right these and minimal calcification were noted in the proximal segment. It gives off 2 high diagonal branches which also were found to have no significant stenotic lesions.. * The left circumflex artery is a medium caliber nondominant vessel which was found to have minimal ostial narrowing. No significant stenotic lesions were seen. * The right coronary artery is a medium caliber dominant vessel with no significant stenotic lesions. The PDA and the PLV branches of this artery also was found to have no significant stenotic lesions. Conclusions 1. This patient with history of hypertension, diabetes, dyslipidemia, atrial fibrillation and LV dysfunction, presenting with complaints of chest pain and shortness of breath. Had a Myocardial perfusion imaging revealing moderate area of reversible defect in the inferior wall region, suggesting ischemia in the distribution of the right coronary artery. In view of the patient's ongoing symptoms and the multiple risk factors, in order to further evaluate the coronary status a cardiac catheterization was recommended. Patient underwent left heart catheterization with left and right coronary angiogram and LV angiogram today. The findings are as follows.. 2. 1. No significant obstructive coronary artery disease. Minimal calcification in the proximal segments of the coronary arteries.2. LV gram revealing diffuse hypokinesia of the left ventricle with an ejection fraction of 40%. Moderate mitral regurgitation. LVEDP of 12 mmHg. Diagnostic RX Recommendation: medical therapy and/or counseling LV EDP: 12 mmHg Ventriculography Ejection Fraction: 40.0 % Left Ventriculography Findings: * LV gram was performed in the CAMARGO projection. The LV cavity appeared to be mildly dilated. There was diffuse hypokinesia of the left ventricle. No filling defects are noted. The overall LV ejection fraction was around 40%. Moderate mitral regurgitation was noted. Pressures Phase:Rest AO : 106 / 55 ( 74 ) @ 8:32:00 AM 85 / 59 ( 72 ) @ 8:33:00 AM 112 / 62 ( 75 ) @ 8:45:00 AM 115 / 49 ( 76 ) @ 8:45:00 AM LV : 111 / 3 / 12 @ 8:44:00 AM 109 / 5 / 18 @ 8:45:00 AM 110 / 5 / 19 @ 8:45:00 AM Valves Phase:DefaultPhase AV : 3.0 @ 7:54:04 AM AV Mean Gradient: 6.0 @ 7:54:04 AM Clinical Evaluation EBL: 5mL-10mL Procedural Details Pre-Procedure Time Out. Identified patient by full name and date of as verbalized by the patient/guarantor. Does the consent match the physician's order: Yes. Accurate & Complete Informed Consent: Yes. Inpatient/Outpatient History & Physical on Chart: Yes. If H&P is completed, is and addenduem needed: No; If yes, is the addendum complete: N/A. Visualize and Verify Site with Patient/Guarantor: N/A. Relevant Radiology Images available: Yes. Pre-op teaching completed and patient verbalized understanding. The risks, benefits, and alternatives of sedation and/or procedure were discussed by physician. The patient agrees to continue. Procedure started. [facility] Clinical Fraility Score: 3: Managing Well. Dining Manager Indications: Worsening Angina. Chest Pain Symptom Assessment: Typical Angina Symptoms. Correct patient, site and procedure confirmed by cath team. Current diagnosis: Chest Pain. PERRLA. Strong, equal hand heading maker bilaterally. Lungs clear x 5 lobes. IV Site on Arrival: 20 gauge in the left anticubital. IV Fluids: 0.9% NaCl at KVO. 0 mL infused prior to cathodic protection technician. Pre Procedural Pulses: bilateral dorsalis pedis was 3+. Pre Procedural Pulses: bilateral posterior tibial was Doppled. Pre Procedural Pulses: bilateral radial was 3+. Oxygen started at 2liters/min via nasal canula. right groin was prepped with chloroprep then draped in the usual sterile fashion. right radial was prepped with chloroprep then draped in the usual sterile fashion. Baseline sample Acquired. HR: 70 BPM. Physician arrived. Current Diagnosis : Chest Pain. Physician scrubbed in. Immediate Pre-Procedure Time Out. Correct Patient: Yes; Correct Procedure: Yes; Correct Site: Yes; Correct Patient Position: Yes; Correct Supplies: Yes; Dried Flammable Prep: Yes; Blood Products Available: N/A;. Lidocaine 1% infiltrated to the right radial. Arterial access obtained. A 5 nepali Luis Alberto catheter in over wire. Multiple views taken of left coronary artery. Catheter redirected to the RCA. Catheter removed over the exchange wire. A 5 nepali JR4 catheter in over wire. Multiple views taken of right coronary artery. Catheter removed over the exchange wire. A 5 nepali Angled Pig catheter in over wire. EDP Sample taken: LV 111/3,12; HR: 81 BPM; SpO2: 97%. LV gram performed in CAMARGO @ 10 mL/second for a total of 30 mL. EDP Sample taken: LV 109/5,18; HR: 59 BPM; SpO2: 96%. Pullback taken: LV 110/5,19; AO 112/62(75); Mean: 6mmHg, Peak to Peak: 3mmHg, SEP: 19sec/min; HR: 59 BPM; SpO2: 97%. Catheter removed over the exchange wire. A TR Band was successful obtaining hemostatsis at the Right Radial artery insertion site. Post Procedure: Pulses reassessed and unchanged. PERRLA. Strong, equal hand heading maker bilaterally. No VTE prophylaxis required. Medication's Wasted: Lidocaine 1% = 17 mL. Medication's Wasted: Nitro = 49.9 mcg. Medication's Wasted: Heparin = 1000 units. Medication's Wasted: Other = Fentanyl 75mcg Versed 1 mg. Total IV fluids: 260 mL. Vital chart was stopped. Post-op diagnosis: Cardiomyopathy. Complications: None. Estimated blood loss: 5mL-10mL. Responsiveness - Normal response to verbal stimuli; alert and oriented, PERRLA. Airway - Unaffected, no intervention required; spontaneous ventilation. Circulation: W/N/L, pulses unchanged. Nausea/Vomiting: No. Procedure completed. Patient transferred by wheelchair to 1st floor. Access Site Site: Right Radial artery Sheath Size: 6 Fr Hemostasis Method: TR Band Hemostasis Success: Successful Procedure Medications Start: 7:17 AM Stop: 7:17 AM Medication: Versed Amount: 1 mg Route: I.V. Start: 7:19 AM Stop: 7:19 AM Medication: Fentanyl Amount: 25 mcg Route: I.V. Start: 7:26 AM Stop: 7:26 AM Medication: 0.9% Saline Amount: 250 ml Route: I.V. bolus Start: 7:29 AM Stop: 7:29 AM Medication: Verapamil Amount: 5 mg Route: I.C. Start: 7:31 AM Stop: 7:31 AM Medication: Heparin Amount: 5000 units Route: I.V. Start: 7:37 AM Stop: 7:37 AM Medication: Nitrogylcerin Amount: 100 mcg Route: I.A. I, the attending physician, have reviewed and verified all procedure medications. Yes, all medications given per verbal order History/Risk Factors Hypertension: Yes Dyslipidemia: Yes Peripheral Arterial Disease (PAD): No Myocardial Infarction ([place]): No Obesity: No Renal Disease: No Tobacco Use: Never Prior Interventions PCI: No CABG: No Valve Surgery: No Report Signatures Finalized by Dr Kelsey Morejon MD [facility] on 12/13/2023 08:54 PM
[2023-12-13] MEDS: aspirin 325 mg Tablet PO (06:15)
[2023-12-13] MEDS: diphenhydrAMINE 50 mg Capsule PO (06:15)
[2023-12-13 06:20] LABS: Basophils % 0.6 %; Eosinophils # 0.2 10^3/uL (0.0-0.8); Hematocrit 40.4 % (36-47); Lymphocytes # 2.1 10^3/uL (0.8-4.8); Lymphocytes % 43.2 %; Mean Corpuscular HGB Conc 31.7 g/dL (30-55); Mean Corpuscular Hemoglobin 28.5 pg (27-33); Mean Platelet Volume 9.9 fL (7.4-10.4); Monocytes # 0.3 10^3/uL (0.2-0.9); Monocytes % 6.9 %; Neutrophils # 2.23 10^3/uL (1.8-7.7); Neutrophils % 45.1 %; Nucleated Red Blood Cells % 0 %; Platelet Count 227 10^3/cmm (157-399); Red Blood Count 4.49 10^6/uL (3.85-5.65); Red Cell Distribution Width 14.4 % (12.1-15.1); White Blood Count 4.95 10^3/uL (3.29-11.43)
[2023-12-13 06:32] LABS: INR 1.13 (0.8-1.2)
[2023-12-13 06:36] LABS: Anion Gap 15.3 (5-19); Blood Urea Nitrogen 23 mg/dL (8-23); Calcium 9.2 mg/dL (8.5-10.5); Carbon Dioxide 27 mmol/L (22-29); Chloride 101 mmol/L (98-107); Glomerular Filtration Rate 83.2 mL/min (90-130); Glucose 122 mg/dL (65-115); Osmolality Calculated 293 mOsm/kg (285-295); Potassium 4.3 mmol/L (3.5-5.1); Sodium 139 mmol/L (136-145)
--- NOTE | 2023-12-13 07:11 | W.PM.OPSUD ---
Surgery/Procedure H&P Update DATE OF PROCEDURE: December 13, 2023 DATE H&P PERFORMED: 11/14/23 H&P UPDATE INFORMATION: I have reviewed H&P completed within last 30 days, I have examined patient prior to procedure and No changes to prior documentation PREOP DIAGNOSIS: ASHD PRIMARY INDICATION FOR PROCEDURE: Chest pain, abnormal myocardial perfusion imaging PLANNED PROCEDURE: Operation Date: 12/13/23 07:00 Proposed Procedures p Cardiac Catheterization 68165, I25.10, I48.91, R94.39(Left) - Kelsey Morejon MD PATIENT REASSESSED PRIOR TO SEDATION, WITH NO CHANGE NOTED: Yes PHYSICAL EXAM: alert, oriented x 3, clear to auscultation bilaterally and regular rate & rhythm AIRWAY EVAL/ANESTHESIA PLAN: normal airway, see other exam findings, ASA III, Monitored Anesthesia, Local Anesthesia, Risks, benefits & alternatives of sedation and/or procedure discussed and Patient agrees to continue as planned
--- NOTE | 2023-12-13 08:29 | PC.NURSE ---
Patient presents to CSU from boot and shoe laborer with a right radial TR-band at 0758. No hematoma noted.
--- NOTE | 2023-12-13 09:57 | PC.NURSE ---
Confirmed with Dr. Morejon regarding patients metformin. Hold metformin for 72 hours. Medication is held.
--- NOTE | 2023-12-13 14:26 | PC.NURSE ---
Patient presents to CSU from cardiac catheterization technologist with a right radial TR_Band. Air is removed slowly as follows: 1ml of air is removed at 0918, 2ml's of air is removed at 0955, 2ml's of air is removed at 1018, 2ml's of air is removed at 1145, 2ml's of air is removed at 1218. 2ml's of air is removed at 1245, 2ml's of air is removed at 1335. TR-band is removed at 1422. A 2x2 and tegaderm dressing is applied.
[2023-12-13] MEDS: magnesium oxide 400 mg tablet PO (17:29)
[2023-12-13] MEDS: dilTIAZem 30 mg Tablet PO (17:29)
[2023-12-13] MEDS: sacubitril/valsartan 24-26 mg Tablet 1 EACH PO (17:44)
--- NOTE | 2023-12-13 19:02 | PC.NURSE ---
Patient is discharged per Dr. Morejon. Discharge packet is gone over. Her blood pressures before and one hour after taking Entresto. Per provider patient can be discharged if systolic blood pressure is over 100.
== END 2023-12-13 19:02 | disposition home or self-care (01) ==
LOC: CSU 07:58
PROVIDERS: Admitting Provider Internal Medicine Cardiovascular Disease; PCP Nurse Practitioner Family; Visit Provider Internal Medicine Cardiovascular Disease
DX: I25.118 Atherosclerotic heart disease of native coronary artery with other forms of angina pectoris (principal); I48.91 Unspecified atrial fibrillation; Z79.01 Long term (current) use of anticoagulants; E03.9 Hypothyroidism, unspecified; I10 Essential (primary) hypertension; E11.40 Type 2 diabetes mellitus with diabetic neuropathy, unspecified; Z85.3 Personal history of malignant neoplasm of breast; Z98.84 Bariatric surgery status; E78.2 Mixed hyperlipidemia
CPT/HCPCS: 36415; 80048; 85025; 85610; 93458; 96374; 96375; 99152; 99153; C1769; C1887; C1894; G0378; J1644; J2250; J3010; J3490; J7030; Q0163; Q9967

== ENCOUNTER → 2023-12-23 14:40 | Outpatient (BNVA) | payer MEDICARE, SELFPAY | PROVIDERS: PCP Nurse Practitioner Family; Visit Provider Nurse Practitioner Family | DX: I48.19 Other persistent atrial fibrillation (principal); I73.9 Peripheral vascular disease, unspecified | CPT/HCPCS: 85610 ==

== ENCOUNTER → 2023-12-31 13:15 | Outpatient (BNVA) | payer MEDICARE, SELFPAY | PROVIDERS: PCP Nurse Practitioner Family; Visit Provider Podiatrist Foot & Ankle Surgery | DX: E11.8 Type 2 diabetes mellitus with unspecified complications (principal); I73.9 Peripheral vascular disease, unspecified; E11.42 Type 2 diabetes mellitus with diabetic polyneuropathy; L60.3 Nail dystrophy; Z79.84 Long term (current) use of oral hypoglycemic drugs | CPT/HCPCS: 11721 ==

== ENCOUNTER → 2024-03-12 14:21 | Outpatient (BNVA) | payer MEDICARE, SELFPAY | PROVIDERS: PCP Nurse Practitioner Family; Visit Provider Nurse Practitioner Family | DX: R30.0 Dysuria (principal) | CPT/HCPCS: 81000 ==

== ENCOUNTER → 2024-04-08 09:16 | Outpatient (BNVA) | payer MEDICARE, SELFPAY | PROVIDERS: PCP Nurse Practitioner Family; Visit Provider Podiatrist Foot & Ankle Surgery | DX: E11.8 Type 2 diabetes mellitus with unspecified complications (principal); I73.9 Peripheral vascular disease, unspecified; E11.42 Type 2 diabetes mellitus with diabetic polyneuropathy; L60.3 Nail dystrophy; Z79.84 Long term (current) use of oral hypoglycemic drugs | CPT/HCPCS: 11721 ==

== ENCOUNTER → 2024-04-09 11:13 | Outpatient (BNVA) | payer MEDICARE, SELFPAY | PROVIDERS: PCP Nurse Practitioner Family; Visit Provider Internal Medicine Cardiovascular Disease | DX: I48.19 Other persistent atrial fibrillation (principal) | CPT/HCPCS: 85610 ==

== ENCOUNTER → 2024-07-14 15:20 | Outpatient (BNVA) | payer MEDICARE, SELFPAY | PROVIDERS: Visit Provider Internal Medicine Cardiovascular Disease | DX: I48.19 Other persistent atrial fibrillation (principal); I73.9 Peripheral vascular disease, unspecified; I10 Essential (primary) hypertension; I25.10 Atherosclerotic heart disease of native coronary artery without angina pectoris; E78.5 Hyperlipidemia, unspecified; Z79.84 Long term (current) use of oral hypoglycemic drugs | CPT/HCPCS: 99214 ==

== ENCOUNTER → 2024-07-28 08:00 | Outpatient (BNVA) | payer MEDICARE, SELFPAY | PROVIDERS: Visit Provider Podiatrist Foot & Ankle Surgery | DX: I73.9 Peripheral vascular disease, unspecified (principal); E11.42 Type 2 diabetes mellitus with diabetic polyneuropathy; L60.3 Nail dystrophy; Z79.84 Long term (current) use of oral hypoglycemic drugs | CPT/HCPCS: 11721 ==

== ENCOUNTER → 2024-10-20 09:21 | Outpatient (BNVA) | payer MEDICARE, SELFPAY | PROVIDERS: PCP Nurse Practitioner Family; Visit Provider Nurse Practitioner Family | DX: R30.0 Dysuria (principal); I10 Essential (primary) hypertension; E11.42 Type 2 diabetes mellitus with diabetic polyneuropathy; Z85.3 Personal history of malignant neoplasm of breast; Z90.11 Acquired absence of right breast and nipple; M25.562 Pain in left knee; R53.1 Weakness; R26.89 Other abnormalities of gait and mobility; I25.10 Atherosclerotic heart disease of native coronary artery without angina pectoris | CPT/HCPCS: 73562; 80053; 80061; 81000; 83036; 84443; 85025 ==

== ENCOUNTER → 2024-10-26 14:29 | Outpatient (BNVA) | payer MEDICARE, SELFPAY | PROVIDERS: PCP Nurse Practitioner Family; Visit Provider Student in an Organized Health Care Education/Training Program | DX: M17.12 Unilateral primary osteoarthritis, left knee (principal); Z46.89 Encounter for fitting and adjustment of other specified devices | CPT/HCPCS: 73560; 73565 ==

== ENCOUNTER 2024-10-26 15:23 | Outpatient (CLI) | payer MEDICARE, SELFPAY | END 2024-10-26 15:24 | disposition home or self-care (01) | LOC: SPT 15:24 | PROVIDERS: PCP Nurse Practitioner Family; Visit Provider Student in an Organized Health Care Education/Training Program | DX: Z46.89 Encounter for fitting and adjustment of other specified devices (principal); M17.12 Unilateral primary osteoarthritis, left knee | CPT/HCPCS: 20610; J3301; J9999; L1851 ==

== ENCOUNTER → 2024-10-27 08:57 | Outpatient (BNVA) | payer MEDICARE, SELFPAY | PROVIDERS: PCP Nurse Practitioner Family; Visit Provider Podiatrist Foot & Ankle Surgery | DX: E11.42 Type 2 diabetes mellitus with diabetic polyneuropathy (principal); L60.3 Nail dystrophy; E11.8 Type 2 diabetes mellitus with unspecified complications; I73.9 Peripheral vascular disease, unspecified; Z79.84 Long term (current) use of oral hypoglycemic drugs | CPT/HCPCS: 11721 ==

== ENCOUNTER 2024-10-28 08:13 | Outpatient (CLI) | payer MEDICARE, SELFPAY ==
--- NOTE | 2024-10-28 08:00 | MM_ITS ---
WS: [id number] DIAGNOSTIC LEFT DIGITAL BREAST TOMOSYNTHESIS MAMMOGRAPHY WITH CAD HISTORY: Z85.3 - Personal history of malignant neoplasm of breast COMPARISON: 10/22/2022, 10/13/2021 Breast composition: The breasts are heterogeneously dense, which may obscure small masses. Numerous coarse calcifications within the LEFT breast and multiple quadrants. Calcification burden has increased since the prior study. No suspicious grouping of calcifications. No mass or distortion. MM/MM diag LT tomosynthesis [id number] IMPRESSION: BI-RADS: 2 - Benign FOLLOW UP: 1 Year Follow-up
== END 2024-10-28 08:14 | disposition home or self-care (01) ==
PROVIDERS: PCP Nurse Practitioner Family; Visit Provider Nurse Practitioner Family
DX: Z85.3 Personal history of malignant neoplasm of breast (principal); Z90.11 Acquired absence of right breast and nipple; R92.333 Mammographic heterogeneous density, bilateral breasts; R92.1 Mammographic calcification found on diagnostic imaging of breast
CPT/HCPCS: 77061; G0279

== ENCOUNTER 2024-11-29 05:00 | Outpatient (RCR) | payer MEDICARE, SELFPAY | END 2024-12-28 23:59 | disposition home or self-care (01) | LOC: TPT 05:00 | PROVIDERS: Visit Provider Nurse Practitioner Family | DX: R53.1 Weakness (principal); R26.89 Other abnormalities of gait and mobility | CPT/HCPCS: 97161 ==

== ENCOUNTER 2024-12-25 07:38 | Outpatient (CLI) | payer MEDICARE, SELFPAY ==
--- NOTE | 2024-12-25 07:15 | USCV_ITS ---
Joan Núñez Age: 69 Gender: F : 1955 Exam Date: 12/25/2024 07:57 Ordering Phys: Kelsey Morejon MD ([email or web address]) Technologist: EBONI [place] [facility] [place]: Cardiomyopathy/MR BP: 130 / 75 HR: 63 Rhythm: Sinus Technical Quality: Adequate MEASUREMENTS (Male / Female) Normal Values 2D ECHO LV Diastolic Diameter PLAX 5.1 cm 4.2 - 5.9 / 3.9 - 5.3 cm IVS Diastolic Thickness 1.1 cm 0.6 - 1.0 / 0.6 - 0.9 cm IVS Systolic Thickness 1.3 cm LVPW Diastolic Thickness 1.1 cm 0.6 - 1.0 / 0.6 - 0.9 cm LVPW Systolic Thickness 1.8 cm LVOT Diameter 2.0 cm LV Ejection Fraction 2D Teich 54.0 % LV Ejection Fraction MOD 4C 55.1 % LV Ejection Fraction MOD 2C 52.0 % LV Ejection Fraction 2C AL 54.7 % LA Diameter 4.6 cm RA Systolic Volume 4C AL 52.5 ml RA Systolic Volume 4C MOD 49.7 ml LA Sys Volume AL 84.0 cm cubed LA Sys Volume Index AL 42.0 cm cubed/m squared Aorta at Sinotubular Diameter 2.8 cm IVC Diameter 2.4 cm M-MODE LA Ao Ratio MM 1.3 AV Cusp Separation MM 1.4 cm DOPPLER AV Peak Velocity 148.0 cm/s LVOT Peak Velocity 100.0 cm/s AV Area Cont Eq vti 2.3 cm squared AV Area Cont Eq pk 2.1 cm squared MV Peak Velocity 122.0 cm/s MV Area PHT 3.0 cm squared Mitral E to A Ratio 0.8 TR Peak Velocity 111.0 cm/s TR Peak Gradient 4.9 mmHg TV Peak E Velocity 72.0 cm/s PV Peak Velocity 117.0 cm/s FINDINGS Left Ventricle Mild diffuse hypokinesia of the left ventricle with an ejection fraction of 50 to 55% . LV cavity, upper limit of normal size.Grade I/IV diastolic dysfunction (abnormal relaxation filling pattern), normal to mildly elevated filling pressures. Right Ventricle The right ventricle is normal in size and function. Right Atrium The right atrium is normal in size. Left Atrium Mildly increased left atrial size. Mitral Valve Mild mitral annular calcification. Mild-moderate mitral valve regurgitation. Aortic Valve Thickened aortic valve. Tricuspid Valve No gross abnormalities noted Pulmonic Valve No gross abnormalities noted Pericardium Normal pericardium without effusion. Aorta Normal ascending aorta dimension. IVC Normal IVC dimension with <50% respiratory change of the inferior vena cava. CONCLUSIONS Mild diffuse hypokinesia of the left ventricle with an ejection fraction of 50 to 55% . LV cavity, upper limit of normal size. Grade I/IV diastolic dysfunction (abnormal relaxation filling pattern), normal to mildly elevated filling pressures. Mildly increased left atrial size. Mild mitral annular calcification. Mild-moderate mitral valve regurgitation. Thickened aortic valve. There is no pericardial effusion. There are no intracardiac masses. Compared to the study from 05/10/2023, there is improvement of the LV ejection fraction from 42% to 50-55% Dr Kelsey Morejon MD [facility] (Electronically Signed) Final Date: 07 January 2025 07:22 S
== END 2024-12-25 07:39 | disposition home or self-care (01) ==
LOC: RAD 07:38
PROVIDERS: PCP Nurse Practitioner Family; Visit Provider Internal Medicine Cardiovascular Disease
DX: I42.9 Cardiomyopathy, unspecified (principal); I34.0 Nonrheumatic mitral (valve) insufficiency; R93.1 Abnormal findings on diagnostic imaging of heart and coronary circulation; I51.89 Other ill-defined heart diseases; I51.7 Cardiomegaly; I34.81 Nonrheumatic mitral (valve) annulus calcification; I35.8 Other nonrheumatic aortic valve disorders
CPT/HCPCS: 93306

== ENCOUNTER 2024-12-29 05:00 | Outpatient (RCR) | payer MEDICARE, SELFPAY | END 2025-01-28 23:59 | disposition home or self-care (01) | LOC: TPT 05:00 | PROVIDERS: PCP Nurse Practitioner Family; Visit Provider Nurse Practitioner Family | DX: R53.1 Weakness (principal); R26.89 Other abnormalities of gait and mobility | CPT/HCPCS: 97110; 97116 ==

== ENCOUNTER → 2025-01-26 15:06 | Outpatient (BNVA) | payer MEDICARE, SELFPAY | PROVIDERS: PCP Nurse Practitioner Family; Visit Provider Student in an Organized Health Care Education/Training Program | DX: M17.12 Unilateral primary osteoarthritis, left knee (principal) | CPT/HCPCS: 20610; 99213; J7318 ==

== ENCOUNTER 2025-02-03 18:27 | Outpatient (CLI) | payer MEDICARE, SELFPAY ==
--- NOTE | 2025-02-03 18:43 | XRR_ITS ---
PROCEDURE INFORMATION: Exam: XR Left Hip Exam date and time: 02/03/2025 6:53 PM Age: 69 years old Clinical indication: Injury or trauma; Fall; Blunt trauma (contusions or hematomas); Left; Hip TECHNIQUE: Imaging protocol: Radiologic exam of the left hip. Views: 2 or 3 views hip with pelvis when performed. COMPARISON: CT chest abdpel w/*[id number] 04/16/2022 6:57 PM FINDINGS: Bones/joints: Degenerative changes of vertebral bodies with multilevel endplate spurring and disc space narrowing. Mild degenerative changes of bilateral hips. Dextroconvex curvature of the lumbar spine. Soft tissues: Unremarkable. Intraperitoneal space: Postsurgical clips throughout the pelvis. XR/XR hip LT 2-3V wo/w pel* [id number] IMPRESSION: No definitive radiographic evidence of left hip fracture.
--- NOTE | 2025-02-03 18:43 | XRR_ITS ---
PROCEDURE INFORMATION: Exam: XR Lumbosacral Spine Exam date and time: 02/03/2025 6:58 PM Age: 69 years old Clinical indication: Injury or trauma; Fall; Blunt trauma (contusions or hematomas) TECHNIQUE: Imaging protocol: Radiologic exam of the lumbosacral spine. Views: 2 or 3 views. COMPARISON: CR (PELVIS, ) 02/03/2025 6:53 PM FINDINGS: Bones/joints: Dextroconvex curvature of the lumbar spine. Query age-indeterminate compression deformities of the 2 lower lumbar vertebrae. Degenerative changes of vertebral bodies with multilevel endplate spurring and disc space narrowing. [id number]-[id number]-[id number] degenerative changes bilateral hip. Soft tissues: Unremarkable. Intraperitoneal space: Clips in the upper abdomen related to prior surgery. Bowel gas pattern grossly unremarkable. XR/XR lumbar spine 2-3V* [id number] IMPRESSION: No definite acute fracture. Degenerative changes of vertebral bodies as above.
== END 2025-02-03 18:28 | disposition home or self-care (01) ==
PROVIDERS: PCP Nurse Practitioner Family; Visit Provider Registered Nurse Neonatal Intensive Care
DX: M41.86 Other forms of scoliosis, lumbar region (principal); M51.370 Other intervertebral disc degeneration, lumbosacral region with discogenic back pain only
CPT/HCPCS: 72100; 73502

== ENCOUNTER 2025-02-03 19:22 | Emergency (ER) | payer MEDICARE, SELFPAY ==
[2025-02-03 19:42] VITALS: BP 156/76; PULSE 73; RESP 14; TEMP 36.5; O2SAT 100; BMI 33.1
--- OUTSIDE RECORDS SUMMARY | 2025-02-03 19:42 | XMS_ITS | Encounter Summary ---
Author Organization [facility] Address [address] [place] [address] Care Team Providers Care Senior Product Engineer Name Role Phone Gretel Benson APN Primary Care Provider [phone] Encounter Details Date Type Department Care Team (Late st Contact Info) Description 10/17/2006 Outpatient Historical [facility] Gen Spec Surg [address] [address] Cassius Alejandro MD [address] [place] [id number] Malignant Neoplasm of Breast (Female), Unspecified Site (CMS/HCC) (Primary Dx); Breast Screening, Unspecified Social History Tobacco Use Types Packs/Day Years Used Date Smoking Tobacco: Never Assessed Comments Unknown Sex and Gender Information Value Date Recorded Sex Assigned at Not on file 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 [facility] [address] [place] [address] PCP - General 05/13/08 documented as of this encounter
--- OUTSIDE RECORDS SUMMARY | 2025-02-03 19:42 | XMS_ITS | Encounter Summary ---
Author Organization [facility] Address [address] [place] [address] Care Team Providers Care Architectural Practice Manager Name Role Phone Gretel Benson APN Primary Care Provider [phone] Encounter Details Date Type Department Care Team (Late st Contact Info) Description 09/21/2003 Outpatient Historical [facility] [address] [place] [address] Cassius Alejandro MD [facility] [address] [place] [address] MALIGN NEOPL BREAST NOS (CMS/HCC) (Primary Dx) Social History Tobacco Use Types Packs/Day Years Used Date Smoking Tobacco: Never Assessed Comments Unknown Sex and Gender Information Value Date Recorded Sex Assigned at Not on file 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 [facility] [address] [place] [address] PCP - General 05/13/08 documented as of this encounter
--- OUTSIDE RECORDS SUMMARY | 2025-02-03 19:42 | XMS_ITS | Encounter Summary ---
Author Organization [facility] Address [address] [place] [address] Care Team Providers Care Marketing Technologist Name Role Phone Gretel Benson APN Primary Care Provider [phone] Encounter Details Date Type Department Care Team (Late st Contact Info) Description 09/21/2003 Outpatient Historical [facility] Gen Spec Surg [address] [place] [id number] Cassius Alejandro MD [address] [address] MALIGN NEOPL BREAST NOS (CMS/HCC) (Primary Dx) Social History Tobacco Use Types Packs/Day Years Used Date Smoking Tobacco: Never Assessed Comments Unknown Sex and Gender Information Value Date Recorded Sex Assigned at Not on file 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 [place] [address] PCP - General 05/13/08 documented as of this encounter
--- OUTSIDE RECORDS SUMMARY | 2025-02-03 19:42 | XMS_ITS | Encounter Summary ---
Author Organization [facility] Address [address] [place] [address] Care Team Providers Care Executive Account Manager Name Role Phone Gretel Benson APN Primary Care Provider [phone] Encounter Details Date Type Department Care Team (Late st Contact Info) Description 10/11/2003 Inpatient Historical [facility] IN BED [facility] 1965 [facility] [address] [place] [address] MALIGN NEOPL BREAST NOS (CMS/HCC) (Primary Dx) Social History Tobacco Use Types Packs/Day Years Used Date Smoking Tobacco: Never Assessed Comments Unknown Sex and Gender Information Value Date Recorded Sex Assigned at Not on file 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 [place] [address] PCP - General 05/13/08 documented as of this encounter
--- OUTSIDE RECORDS SUMMARY | 2025-02-03 19:42 | XMS_ITS | Encounter Summary ---
Author Organization [facility] Address [address] [place] [address] Care Team Providers Care Hole Digger Name Role Phone Gretel Benson APN Primary Care Provider Encounter Details Date Type Department Care Team (Late st Contact Info) Description 10/16/2005 Outpatient Historical [facility] Gen Spec Surg [address] [address] Cassius Alejandro MD [address] [place] [address] Malignant Neoplasm of Breast (Female), Unspecified Site (CMS/HCC) (Primary Dx); Breast Screening, Unspecified Social History Tobacco Use Types Packs/Day Years Used Date Smoking Tobacco: Never Assessed Comments Unknown Sex and Gender Information Value Date Recorded Sex Assigned at Not on file 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 [facility] [address] [place] [address] PCP - General 05/13/08 documented as of this encounter
--- OUTSIDE RECORDS SUMMARY | 2025-02-03 19:42 | XMS_ITS | Encounter Summary ---
Author Organization [facility] Address [address] [place] [facility] [place] [address] Care Team Providers Care Infrastructure Project Manager Name Role Phone Gretel Benson APN Primary Care Provider [phone] Encounter Details Date Type Department Care Team (Latest Contact Info) Description 10/21/2003 Outpatient Historical [facility] PLASTIC SURGERY MitzyHenry goodman MD NO ADDRESS ON FILE MALIGN NEOPL BREAST NEC (CMS/HCC) (Primary Dx) Social History Tobacco Use Types Packs/Day Years Used Date Smoking Tobacco: Never Assessed Comments Unknown Sex and Gender Information Value Date Recorded Sex Assigned at Not on file 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 [facility] [address] [place] [address] PCP - General 05/13/08 documented as of this encounter
--- OUTSIDE RECORDS SUMMARY | 2025-02-03 19:42 | XMS_ITS | Encounter Summary ---
Author Organization [facility] Address [address] [facility] [place] [address] Care Team Providers Care Multiple Pressure Riveter Operator Name Role Phone Gretel Benson APN Primary Care Provider [phone] Encounter Details Date Type Department Care Team (Latest Contact Info) Description 09/24/2003 Outpatient Historical HIS [facility] PLASTIC SURGERY MitzyHenry goodman MD NO ADDRESS ON FILE MALIGN NEOPL BREAST NEC (CMS/HCC) (Primary Dx) Social History Tobacco Use Types Packs/Day Years Used Date Smoking Tobacco: Never Assessed Comments Unknown Sex and Gender Information Value Date Recorded Sex Assigned at Not on file 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 [facility] [address] [place] [address] PCP - General 05/13/08 documented as of this encounter
--- OUTSIDE RECORDS SUMMARY | 2025-02-03 19:42 | XMS_ITS | Encounter Summary ---
Author Organization [facility] Address [address] [place] [address] Care Team Providers Care Draw Machine Operator Name Role Phone Gretel Benson APN Primary Care Provider [phone] Encounter Details Date Type Department Care Team (Late st Contact Info) Description 10/26/2003 Outpatient Historical [facility] Gen Spec Surg [address] [address] Cassius Alejandro MD [address] [place] [address] SURGERY FOLLOWUP, UNSPEC (Primary Dx); MALIG NEOPLASM BREAST UP-INNER (CMS/HCC) Social History Tobacco Use Types Packs/Day Years Used Date Smoking Tobacco: Never Assessed Comments Unknown Sex and Gender Information Value Date Recorded Sex Assigned at Not on file Legal Sex Female 5:24 AM HAND DEVELOPER Gender Identity Not on file Sexual Orientation Not on file documented as of this encounter Plan of Treatment Not on file documented as of this encounter Visit Diagnoses Diagnosis Follow-up examination, following unspecified surgery- Primary 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
--- OUTSIDE RECORDS SUMMARY | 2025-02-03 19:42 | XMS_ITS | Encounter Summary ---
Author Organization [facility] Address [address] [place] [address] Care Team Providers Care Bag Sewer Name Role Phone Gretel Benson APN Primary Care Provider [phone] Encounter Details Date Type Department Care Team (Late st Contact Info) Description 04/15/2007 Outpatient Historical [facility] Gen Spec Surg [address] [place] [address] Cassius Alejandro MD [address] [address] Malignant Neoplasm of Breast (Female), Unspecified Site (CMS/HCC) (Primary Dx) Social History Tobacco Use Types Packs/Day Years Used Date Smoking Tobacco: Never Assessed Comments Unknown Sex and Gender Information Value Date Recorded Sex Assigned at Not on file Legal Sex Female 5:24 AM SPECIAL LIBRARY LIBRARIAN Gender Identity Not on file Sexual Orientation [...] documented as of this encounter Care Teams Bag Sewer Relationship Specialty Start Date End Date Gretel Benson APN [address] [place] [address] PCP - General 05/13/08 documented as of this encounter
--- OUTSIDE RECORDS SUMMARY | 2025-02-03 19:43 | XMS_ITS | Encounter Summary ---
Author Organization [facility] Address [address] [place] [address] Care Team Providers Care Specialty Molder Name Role Phone Gretel Benson APN Primary Care Provider [phone] Encounter Details Date Type Department Care Team (Late st Contact Info) Description 04/13/2004 Outpatient Historical [facility] Gen Spec Surg [address] [address] Cassius Alejandro MD [address] [place] [phone] Anal/rectal abscess (Primary Dx); ANAL FISTULA; SURGERY FOLLOWUP, UNSPEC Social History Tobacco Use Types Packs/Day Years Used Date Smoking Tobacco: Never Assessed Comments Unknown Sex and Gender Information Value Date Recorded Sex Assigned at Not on file Legal Sex Female 5:24 AM METAL ROASTER Gender Identity Not on file Sexual Orientation Not on file documented as of this encounter Plan of Treatment Not on file documented as of this encounter Visit Diagnoses Diagnosis Anal/rectal abscess- Primary Abscess of anal and rectal regions Anal fistula Follow-up examination, following unspecified surgery documented in this encounter Additional Health Concerns Infection Onset Date Last Indicated Resolved Time COVID-19 03/06/2020 03/06/2020 04/05/2020 8:08 PM CDT documented as of this encounter Care Teams Specialty Molder Relationship Specialty Start Date End Date Gretel Benson APN [address] [facility] [address] [place] [address] PCP - General 05/13/08 documented as of this encounter
--- OUTSIDE RECORDS SUMMARY | 2025-02-03 19:43 | XMS_ITS | Clinical Summary ---
Author Organization [facility] Address [address] [place] [address] Care Team Providers Care Tawer Name Role Phone Benson, Gretel Humphrey APN Primary Care Provider [phone] Allergies Active Allergy Reactions Criticality Noted Date Comments Pregabalin Other (See Comments) 01/17/2016 Weight gain Medications metoprolol tartrate (LOPRESSOR) 25 mg tablet Take 25 mg by mouth daily at bedtime . Active meclizine (ANTIVERT) 25 mg tablet Take 25 mg by mouth daily. And prn 6 Active potassium chloride (K-DUR) 20 mEq Extended Release tablet Take 20 mEq by mouth late in the day. 6 Active magnesium oxide (MAG-OX) 400 mg tablet Take 400 mg by mouth 2 times daily . Active allopurinol (ZYLOPRIM) 300 mg tablet Take 300 mg by mouth daily. Active cholecalciferol , Vitamin D3, 5,000 unit Capsule Take 5,000 Units by mouth daily. Active multivitamin (DAILY-ADRIANA) tablet Take 1 Tablet by mouth daily. Active OTHERIndication s:please send both bottles at same time. Prednisolone 1%, Gatifloxacin 0.5%, Bromfenac 0.07% - 4ml, start 3 days before surgery 1 drop 3 times a day in surgical eye for 24 days. 4 mL 2 0 Active L. acidophilus/L. rhamnosus (PROBIOTIC ORAL) Take 1 Tablet by mouth late in the day. Active cetirizine (ZyrTEC) 10 mg tablet Take 10 mg by mouth 2 times daily. 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 02/04/2015 Resolved Problems Problem Noted Date Diagnosed Date Resolved Date Morbid obesity with body mas s index of 40.0-49.9 12/09/2015 04/11/2016 Combined forms of age-relate d cataract of both eyes 02/04/2015 06/07/2020 Immunizations Immunization Administration Dates Next Due Influenza Seasonal Unspecified Formulation IM ,05/29/2015 Pneumococcal conjugate, unspecified formulation 01/26/2014 Family History Medical History Relation Name Comments Healthy Father Cancer Mother Relation Name Status Comments Father Mother Social History Tobacco Use Types Packs/Day Years Used Date Smoking Tobacco: Never Smokeless Tobacco: Never Alcohol Use Standard Drinks/Week Comments No 0 (1 standard drink = 0.6 oz pur e alcohol) Comments No Sex and Gender Information Value Date Recorded Sex Assigned at Not on file Legal Sex Female 5:24 AM METAL SLITTER Gender Identity Not on file Sexual Orientation Not on file Last Filed Vital Signs Vital Sign Reading Time Taken Comments Blood Pressure 134/53 05/31/2020 8:05 AM METAL SLITTER Pulse 56 05/31/2020 8:05 AM METAL SLITTER Temperature 36.2 C (97.1 F) 05/31/2020 8:05 AM METAL SLITTER Respiratory Rate 18 05/31/2020 8:05 AM METAL SLITTER Oxygen Saturation 99% 05/31/2020 8:05 AM METAL SLITTER Inhaled Oxygen Concentration - - Weight 84.4 kg (186 lb) 05/31/2020 10:14 AM METAL SLITTER per pt Height 161.3 cm (5' 3.5 ) 05/31/2020 10:14 AM CS T per pt Body Mass Index 32.43 05/31/2020 10:14 AM METAL SLITTER Plan of Treatment Health Maintenance Due Date Last Done Comments DIABETES ANNUAL FOOT EXAM 1973 DIABETES HBA1C Q 6 MONTHS 1973 DIABETES MICROALBUMIN ANNUAL SCREEN 1973 LDL CHOLESTEROL ANNUAL 1973 DTAP/TDAP/TD VACCINES (1 - Tdap) 1974 PNEUMOCOCCAL VACCINE 50+ YEA RS (1 of 2 - PCV) 1974 01/26/2014 BREAST CANCER SCREENING 1995 COLORECTAL SCREENING 2000 Colorectal Cancer Screening 2000 FIT-DNA Q 3 years 2000 FIT/FOBT Q 1 year 2000 Flex Sig/CT Colonography Q 5 years 2000 ZOSTER VACCINE (1 of 2) 2005 OSTEOPOROSIS SCREENING 2020 DIABETES ANNUAL RETINAL EXAM 08/02/202108/2020, 08/02/2020, 08/02/2020, Additional history exists INFLUENZA VACCINE (#1) 2025 03/08/2020, 2014 RSV VACCINE (60+ or ) (1 - 1-dose 75+ series) 2030 Medical Devices Implanted Type Area Lead Fire Protection Engineer Device Identifier Shelf Expiration Date Model / Serial / Lot Lens Iol 27.0dia 2.25cyl Tecnis Toric Ii [id number] - [id number] Implanted:Qty: 1 on 05/24/2020 by Jose Angel Posey MD at [facility] Left: Eye [employer] 07/28/2024 [id number] / [id number] / Lens Io Tecnis 1pc 27.0 [id number] - [id number] Implanted:Qty: 1 on 05/31/2020 by Jose Angel Posey MD at [facility] Right: Eye [employer] 03/24/2024 [id number] / [id number] / Procedures Procedure Name Priority Date/Time Associated Diagnosis Comments OR CPTRIZED OPH DX IMG PST SEGMENT UNI/BI RETINA Routine 08/10/2015 3:25 PM METAL SLITTER Nonexudative senile macular degeneration of retina- both eyes from Last 3 Months or Most Recently Relevant to Health Maintenance Results * OR CPTRIZED OPH DX IMG PST SEGMENT UNI/BI RETINA (08/10/2015 3:25 PM METAL SLITTER) Narrative [facility] OPHTHALMOLOGY ORDERS - 08/10/2015 3:25 PM METAL SLITTER Johnny Sanon MD 08/10/2015 3:25 PM Optical Coherent Topography Report Indication: To evaluate macular degeneration. Right Eye: macular degeneration. There is minimal plaque with RPE / choroid layer irregularity and thickening. There is no macular edema or subretinal fluid. Left Eye: macular degeneration. There is minimal plaque with RPE / choroid layer irregularity and thickening. There is no macular edema or subretinal fluid. Diagnosis: Age related macular degeneration, both eyes us X Julianna Sanon MD OPH OTHER Final Result Performing Organization Address City/State/[facility] Co de Phone Number [facility] OPHTHALMOLOGY ORDERS from Last 3 Months or Most Recently Relevant to Health Maintenance Insurance MEDICARE PART A AND B [facility] MEDICARE PART A AND B [facility] MEDICARE PART A AND B [facility] Advance Directives For more information, please contact: [phone] * Full Code (Latest Code Status on File) Date Activated Date Inactivated Comments 05/31/2020 7:00 AM 05/31/2020 10:29 AM * Full Code Date Activated Date Inactivated Comments 05/24/2020 7:48 AM 05/24/2020 11:31 AM * Full Code Date Activated Date Inactivated Comments 02/20/2016 9:56 AM 02/21/2016 8:33 PM * Full Code Date Activated Date Inactivated Comments 02/20/2016 7:17 AM 02/20/2016 9:56 AM * Full Code Date Activated Date Inactivated Comments 02/20/2016 5:37 AM 02/20/2016 7:17 AM Care Teams Tawer Relationship Specialty Start Date End Date Gretel Benson APN [facility] [address] [address] PCP - General 05/13/08
--- OUTSIDE RECORDS SUMMARY | 2025-02-03 19:43 | XMS_ITS | Encounter Summary ---
Author Organization [facility] Address [address] [place] [address] Care Team Providers Care Pbx Operator Name Role Phone Benson, Gretel Humphrey ESTELLE Primary Care Provider Encounter Details Date Type Department Care Team (Latest Contact Info) Description 09/15/2004 Outpatient [facility] [address] [facility] [address] [place] [address] Henry Forrester MD NO ADDRESS ON FILE ACQUIRED ABSENCE OF BREAST (Primary Dx) Social History Tobacco Use Types Packs/Day Years Used Date Smoking Tobacco: Never Assessed Comments Unknown Sex and Gender Information Value Date Recorded Sex Assigned at Not on file Legal Sex Female 5:24 AM HEEL REDUCER Gender Identity Not on file Sexual Orientation Not on file documented as of this encounter Plan of Treatment Not on file documented as of this encounter Procedures Procedure Name Priority Date/Time Associated Diagnosis Comments POC GLUCOSE Routine 09/15/2004 12:18 PM HEEL REDUCER documented in this encounter Results * (ABNORMAL) POC GLUCOSE (09/15/2004 12:18 PM HEEL REDUCER) GLUCOSE POC 147(H) 60 - 100 mg/dL INTERFACE SYSTEM 09/15/2004 12:1 8 PM HEEL REDUCER us Henry Forrester MD POINT OF CARE TESTING Final Re sult INTERFACE SYSTEM Refer to clinic/hospital department documented in this encounter Visit Diagnoses Diagnosis 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
--- OUTSIDE RECORDS SUMMARY | 2025-02-03 19:43 | XMS_ITS | Encounter Summary ---
Author Organization [facility] Address [address] [place] [address] Care Team Providers Care Second Butler Name Role Phone Gretel Benson APN Primary Care Provider [phone] Encounter Details Date Type Department Care Team (Late st Contact Info) Description 01/13/2004 Outpatient Historical [facility] Gen Spec Surg [address] [address] Cassius Alejandro MD [address] [place] [phone] VENOUS INSUFFICIENCY NOS (Primary Dx); MALIG NEOPLASM BREAST UP-OUTER (CMS/HCC); SURGERY FOLLOWUP, UNSPEC Social History Tobacco Use Types Packs/Day Years Used Date Smoking Tobacco: Never Assessed Comments Unknown Sex and Gender Information Value Date Recorded Sex Assigned at Not on file Legal Sex Female 5:24 AM DOG BARBER Gender Identity Not on file Sexual Orientation Not on file documented as of this encounter Plan of Treatment Not on file documented as of this encounter Visit Diagnoses Diagnosis Unspecified venous (peripheral) insufficiency- Primary Malignant neoplasm of upper-outer quadrant of female breast (CMS/HCC) Malignant neoplasm of upper-outer quadrant of female breast Follow-up examination, following unspecified surgery documented in this encounter Additional Health Concerns Infection Onset Date Last Indicated Resolved Time COVID-19 03/06/2020 03/06/2020 04/05/2020 8:08 PM CDT documented as of this encounter Care Teams Second Butler Relationship Specialty Start Date End Date Gretel Benson APN [address] [place] [address] PCP - General 05/13/08 documented as of this encounter
--- OUTSIDE RECORDS SUMMARY | 2025-02-03 19:43 | XMS_ITS | Encounter Summary ---
Author Organization [facility] Address [address] [place] [address] Care Team Providers Care Family Resource Management Specialist Name Role Phone Gretel Benson APN Primary Care Provider [phone] Encounter Details Date Type Department Care Team (Late st Contact Info) Description 12/06/2003 Outpatient Historical [facility] Operating Room [address] [place] [address] Cassius Alejandro MD 1965 [facility] [address] [place] [address] ANAL & RECTAL ABSCESS (Primary Dx) Social History Tobacco Use Types Packs/Day Years Used Date Smoking Tobacco: Never Assessed Comments Unknown Sex and Gender Information Value Date Recorded Sex Assigned at Not on file Legal Sex Female 5:24 AM FOAMITE MIXER Gender Identity Not on file Sexual Orientation Not on file documented as of this encounter Plan of Treatment Not on file documented as of this encounter Visit Diagnoses Diagnosis Abscess of anal and rectal regions- Primary documented in this encounter Additional Health Concerns Infection Onset Date Last Indicated Resolved Time COVID-19 03/06/2020 03/06/2020 04/05/2020 8:08 PM CDT documented as of this encounter Care Teams Family Resource Management Specialist Relationship Specialty Start Date End Date Gretel Benson APN [address] [facility] [address] [place] [address] PCP - General 05/13/08 documented as of this encounter
--- OUTSIDE RECORDS SUMMARY | 2025-02-03 19:43 | XMS_ITS | Encounter Summary ---
Author Organization [facility] Address [address] [place] [address] Care Team Providers Care Welding Machine Operator Gas Name Role Phone Gretel Benson APN Primary Care Provider [phone] Encounter Details Date Type Department Care Team (Latest Contact Info) Description 10/27/2003 Outpatient Historical [facility] Operating Room [address] [place] [phone] Henry Forrester MD NO ADDRESS ON FILE FAT NECROSIS OF BREAST (Primary Dx) Social History Tobacco Use Types Packs/Day Years Used Date Smoking Tobacco: Never Assessed Comments Unknown Sex and Gender Information Value Date Recorded Sex Assigned at Not on file Legal Sex Female 5:24 AM ROLLED HAM LACER Gender Identity Not on file Sexual Orientation Not on file documented as of this encounter Plan of Treatment Not on file documented as of this encounter Visit Diagnoses Diagnosis Fat necrosis of breast- Primary documented in this encounter Additional Health Concerns Infection Onset Date Last Indicated Resolved Time COVID-19 03/06/2020 03/06/2020 04/05/2020 8:08 PM CDT documented as of this encounter Care Teams Welding Machine Operator Gas Relationship Specialty Start Date End Date Gretel Benson APN [address] [facility] [address] [place] [address] PCP - General 05/13/08 documented as of this encounter
--- OUTSIDE RECORDS SUMMARY | 2025-02-03 19:43 | XMS_ITS | Encounter Summary ---
Author Organization [facility] Address [address] [facility] [place] [place] [address] Care Team Providers Care Bottle Hop Name Role Phone Gretel Benson APN Primary Care Provider Encounter Details Date Type Department Care Team (Latest Contact Info) Description 11/30/2003 Outpatient Historical [facility] MitzyHenry goodman MD NO ADDRESS ON FILE NONHEALING SURGICAL WOUND (Primary Dx) Social History Tobacco Use Types Packs/Day Years Used Date Smoking Tobacco: Never Assessed Comments Unknown Sex and Gender Information Value Date Recorded Sex Assigned at Not on file Legal Sex Female 5:24 AM PRODUCT DESIGNER Gender Identity Not on file Sexual Orientation Not on file documented as of this encounter Plan of Treatment Not on file documented as of this encounter Visit Diagnoses Diagnosis Non-healing surgical wound- Primary documented in this encounter Additional Health Concerns Infection Onset Date Last Indicated Resolved Time COVID-19 03/06/2020 03/06/2020 04/05/2020 8:08 PM CDT documented as of this encounter Care Teams Bottle Hop Relationship Specialty Start Date End Date Gretel Benson APN [address] [address] PCP - General 05/13/08 documented as of this encounter
--- OUTSIDE RECORDS SUMMARY | 2025-02-03 19:43 | XMS_ITS | Encounter Summary ---
Author Organization [facility] Address [address] [place] [facility] [place] [address] Care Team Providers Care Rhinestone Setter Name Role Phone Gretel Benson APN Primary Care Provider [phone] Encounter Details Date Type Department Care Team (Latest Contact Info) Description 11/02/2003 Outpatient Historical [facility] MitzyHenry goodman MD NO ADDRESS ON FILE NONHEALING SURGICAL WOUND (Primary Dx) Social History Tobacco Use Types Packs/Day Years Used Date Smoking Tobacco: Never Assessed Comments Unknown Sex and Gender Information Value Date Recorded Sex Assigned at Not on file Legal Sex Female 5:24 AM LOOM MECHANIC Gender Identity Not on file Sexual Orientation Not on file documented as of this encounter Plan of Treatment Not on file documented as of this encounter Visit Diagnoses Diagnosis Non-healing surgical wound- Primary documented in this encounter Additional Health Concerns Infection Onset Date Last Indicated Resolved Time COVID-19 03/06/2020 03/06/2020 04/05/2020 8:08 PM CDT documented as of this encounter Care Teams Rhinestone Setter Relationship Specialty Start Date End Date Gretel Benson APN [address] [address] PCP - General 05/13/08 documented as of this encounter
--- OUTSIDE RECORDS SUMMARY | 2025-02-03 19:43 | XMS_ITS | Encounter Summary ---
Author Organization [facility] Address [address] [place] [address] Care Team Providers Care Lay Out Technician Name Role Phone Gretel Benson APN Primary Care Provider Encounter Details Date Type Department Care Team (Late st Contact Info) Description 11/26/2003 Outpatient Historical [facility] Operating Room [address] [place] [phone] Cassius Alejandro MD 1965 [facility] [address] [place] [address] ANAL FISTULA (Primary Dx) Social History Tobacco Use Types Packs/Day Years Used Date Smoking Tobacco: Never Assessed Comments Unknown Sex and Gender Information Value Date Recorded Sex Assigned at Not on file Legal Sex Female 5:24 AM SUPERVISOR CLAM BED Gender Identity Not on file Sexual Orientation Not on file documented as of this encounter Plan of Treatment Not on file documented as of this encounter Visit Diagnoses Diagnosis Anal fistula- Primary documented in this encounter Additional Health Concerns Infection Onset Date Last Indicated Resolved Time COVID-19 03/06/2020 03/06/2020 04/05/2020 8:08 PM CDT documented as of this encounter Care Teams Lay Out Technician Relationship Specialty Start Date End Date Gretel Benson APN [address] [place] [address] PCP - General 05/13/08 documented as of this encounter
--- OUTSIDE RECORDS SUMMARY | 2025-02-03 19:43 | XMS_ITS | Encounter Summary ---
Author Organization [facility] Address [address] [place] [address] Care Team Providers Care Briefcase Sewer Name Role Phone Gretel Benson APN Primary Care Provider [phone] Encounter Details Date Type Department Care Team (Latest Contact Info) Description 12/30/2003 Outpatient Historical [facility] Gen Spec Surg [address] [place] [phone] Kandy Moses, CORPORATE DIRECTOR NO ADDRESS ON FILE Anal/rectal abscess (Primary Dx); SURGERY FOLLOWUP, UNSPEC Social History Tobacco Use Types Packs/Day Years Used Date Smoking Tobacco: Never Assessed Comments Unknown Sex and Gender Information Value Date Recorded Sex Assigned at Not on file Legal Sex Female 5:24 AM OPTICAL ELEMENT COATER Gender Identity Not on file Sexual Orientation Not on file documented as of this encounter Plan of Treatment Not on file documented as of this encounter Visit Diagnoses Diagnosis Anal/rectal abscess- Primary Abscess of anal and rectal regions Follow-up examination, following unspecified surgery documented in this encounter Additional Health Concerns Infection Onset Date Last Indicated Resolved Time COVID-19 03/06/2020 03/06/2020 04/05/2020 8:08 PM CDT documented as of this encounter Care Teams Briefcase Sewer Relationship Specialty Start Date End Date Gretel Benson APN [address] [facility] [address] [place] [address] PCP - General 05/13/08 documented as of this encounter
--- OUTSIDE RECORDS SUMMARY | 2025-02-03 19:43 | XMS_ITS | Encounter Summary ---
Author Organization [facility] Address [address] [place] [facility] [place] [address] Care Team Providers Care As400 Programmer Analyst Name Role Phone Gretel Benson APN Primary Care Provider [phone] Encounter Details Date Type Department Care Team (Latest Contact Info) Description 01/25/2004 Outpatient Historical [facility] MitzyHenry goodman MD NO ADDRESS ON FILE MALIGN NEOPL BREAST NEC (CMS/HCC) (Primary Dx) Social History Tobacco Use Types Packs/Day Years Used Date Smoking Tobacco: Never Assessed Comments Unknown Sex and Gender Information Value Date Recorded Sex Assigned at Not on file Legal Sex Female 5:24 AM ULTRASONOGRAPHER Gender Identity Not on file Sexual Orientation [...] documented as of this encounter Care Teams As400 Programmer Analyst Relationship Specialty Start Date End Date Gretel Benson APN [address] [facility] [address] [place] [address] PCP - General 05/13/08 documented as of this encounter
--- OUTSIDE RECORDS SUMMARY | 2025-02-03 19:43 | XMS_ITS | Encounter Summary ---
Author Organization [facility] Address [address] [place] [facility] [place] [address] Care Team Providers Care Squad Leader Name Role Phone Gretel Benson APN Primary Care Provider [phone] Encounter Details Date Type Department Care Team (Latest Contact Info) Description 12/14/2003 Outpatient Historical [facility] [place] [facility] MitzyHenry goodman MD NO ADDRESS ON FILE MALIGN NEOPL BREAST NEC (CMS/HCC) (Primary Dx) Social History Tobacco Use Types Packs/Day Years Used Date Smoking Tobacco: Never Assessed Comments Unknown Sex and Gender Information Value Date Recorded Sex Assigned at Not on file Legal Sex Female 5:24 AM MAGICIAN HELPER Gender Identity Not on file Sexual Orientation [...] documented as of this encounter Care Teams Squad Leader Relationship Specialty Start Date End Date Gretel Benson APN [address] [facility] 4 [place] [address] PCP - General 05/13/08 documented as of this encounter
--- OUTSIDE RECORDS SUMMARY | 2025-02-03 19:43 | XMS_ITS | Encounter Summary ---
Author Organization [facility] Address [address] [place] [address] Care Team Providers Care Side Boss Name Role Phone Gretel Benson APN Primary Care Provider [phone] Encounter Details Date Type Department Care Team (Latest Contact Info) Description 01/23/2005 Outpatient Historical [facility] Plastic Surgery [address] [place] 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 [place] [address] PCP - General 05/13/08 documented as of this encounter
--- OUTSIDE RECORDS SUMMARY | 2025-02-03 19:43 | XMS_ITS | Encounter Summary ---
Author Organization [facility] Address [address] [place] [address] Care Team Providers Care Medical Technologist Prn Name Role Phone Gretel Benson APN Primary Care Provider Encounter Details Date Type Department Care Team (Latest Contact Info) Description 10/12/2004 Outpatient Historical [facility] Plastic Surgery 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 [place] [address] PCP - General 05/13/08 documented as of this encounter
--- OUTSIDE RECORDS SUMMARY | 2025-02-03 19:43 | XMS_ITS | Encounter Summary ---
Author Organization [facility] Address [address] [facility] [place] [address] Care Team Providers Care Pad Cutter Name Role Phone Gretel Benson APN Primary Care Provider [phone] Encounter Details Date Type Department Care Team (Latest Contact Info) Description 11/18/2003 Outpatient Historical [facility] Linda Hackett MD NO ADDRESS ON FILE SURGERY FOLLOWUP, UNSPEC (Primary Dx) Social History Tobacco Use Types Packs/Day Years Used Date Smoking Tobacco: Never Assessed Comments Unknown Sex and Gender Information Value Date Recorded Sex Assigned at Not on file 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 [facility] [address] [place] [address] PCP - General 05/13/08 documented as of this encounter
--- OUTSIDE RECORDS SUMMARY | 2025-02-03 19:43 | XMS_ITS | Encounter Summary ---
Author Organization [facility] Address [address] [place] [address] Care Team Providers Care Seismology Teacher Name Role Phone Gretel Benson APN Primary Care Provider [phone] Encounter Details Date Type Department Care Team (Latest Contact Info) Description 08/04/2004 Outpatient Historical [facility] Plastic Surgery [address] [place] 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 [place] [address] PCP - General 05/13/08 documented as of this encounter
--- OUTSIDE RECORDS SUMMARY | 2025-02-03 19:43 | XMS_ITS | Encounter Summary ---
Author Organization [facility] Address [address] [place] [address] Care Team Providers Care Sex Worker Or Escort Name Role Phone Benson, Gretel Humphrey APN Primary Care Provider [phone] Encounter Details Date Type Department Care Team (Late st Contact Info) Description 12/14/2003 Outpatient Historical [facility] Gen Spec Surg [address] [address] Cassius Alejandro MD [address] [place] [phone] MALIG NEOPLASM BREAST UP-OUTER (CMS/HCC) (Primary Dx); Anal/rectal abscess; ANAL FISTULA; SURGERY FOLLOWUP, UNSPEC Social History Tobacco Use Types Packs/Day Years Used Date Smoking Tobacco: Never Assessed Comments Unknown Sex and Gender Information Value Date Recorded Sex Assigned at Not on file 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 Gender Identity Not on file Sexual Orientation Not on file documented as of this encounter Plan of Treatment Not on file documented as of this encounter Visit Diagnoses Diagnosis Malignant neoplasm of 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
--- OUTSIDE RECORDS SUMMARY | 2025-02-03 19:43 | XMS_ITS | Encounter Summary ---
Author Organization [facility] Address [address] [place] [facility] [place] [address] Care Team Providers Care Wood Milling Machine Hand Name Role Phone Gretel Benson APN Primary Care Provider [phone] Encounter Details Date Type Department Care Team (Latest Contact Info) Description 11/23/2003 Outpatient Historical [facility] MitzyHenry goodman MD NO ADDRESS ON FILE MALIGN NEOPL BREAST NEC (CMS/HCC) (Primary Dx); NONHEALING SURGICAL WOUND Social History Tobacco Use Types Packs/Day Years Used Date Smoking Tobacco: Never Assessed Comments Unknown Sex and Gender Information Value Date Recorded Sex Assigned at Not on file 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 [address] PCP - General 05/13/08 documented as of this encounter
--- OUTSIDE RECORDS SUMMARY | 2025-02-03 19:43 | XMS_ITS | Encounter Summary ---
Author Organization [facility] Address [address] [place] [address] Care Team Providers Care Shoulder Joiner Name Role Phone Gretel Benson APN Primary Care Provider [phone] Encounter Details Date Type Department Care Team (Late st Contact Info) Description 11/02/2003 Outpatient Historical [facility] Gen Spec Surg [address] [address] Cassius Alejandro MD [address] [place] [phone] SURGERY FOLLOWUP, UNSPEC (Primary Dx); MALIG NEOPLASM BREAST UP-OUTER (CMS/HCC) Social History Tobacco Use Types Packs/Day Years Used Date Smoking Tobacco: Never Assessed Comments Unknown Sex and Gender Information Value Date Recorded Sex Assigned at Not on file 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 Gender Identity Not on file Sexual Orientation Not on file documented as of this encounter Plan of Treatment Not on file documented as of this encounter Visit Diagnoses Diagnosis Follow-up examination, following unspecified surgery- Primary Malignant neoplasm of upper-outer quadrant of female breast (CMS/HCC) Malignant neoplasm of upper-outer quadrant of female breast documented in this encounter Additional Health Concerns Infection Onset Date Last Indicated Resolved Time COVID-19 03/06/2020 03/06/2020 04/05/2020 8:08 PM CDT documented as of this encounter Care Teams Shoulder Joiner Relationship Specialty Start Date End Date Gretel Benson APN [address] [place] [address] PCP - General 05/13/08 documented as of this encounter
--- OUTSIDE RECORDS SUMMARY | 2025-02-03 19:43 | XMS_ITS | Encounter Summary ---
Author Organization [facility] Address [address] [place] [address] Care Team Providers Care Broker Associate Name Role Phone Gretel Benson APN Primary Care Provider Encounter Details Date Type Department Care Team (Late st Contact Info) Description 10/12/2004 Outpatient Historical [facility] Gen Spec Surg [address] [address] Cassius Alejandro MD [address] [place] [phone] MALIG NEOPLASM BREAST UP-OUTER (CMS/HCC) (Primary Dx) Social History Tobacco Use Types Packs/Day Years Used Date Smoking Tobacco: Never Assessed Comments Unknown Sex and Gender Information Value Date Recorded Sex Assigned at Not on file 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 [facility] [address] [place] [address] PCP - General 05/13/08 documented as of this encounter
--- OUTSIDE RECORDS SUMMARY | 2025-02-03 19:43 | XMS_ITS | Encounter Summary ---
Author Organization [facility] Address [address] [place] [address] Care Team Providers Care Public Utilities Sales Representative Name Role Phone Gretel Benson APN Primary Care Provider [phone] Encounter Details Date Type Department Care Team (Late st Contact Info) Description 11/09/2003 Outpatient Historical [facility] Gen Spec Surg [address] [address] Cassius Alejandro MD [address] [place] [phone] SURGERY FOLLOWUP, UNSPEC (Primary Dx); MALIG NEOPLASM BREAST UP-OUTER (CMS/HCC) Social History Tobacco Use Types Packs/Day Years Used Date Smoking Tobacco: Never Assessed Comments Unknown Sex and Gender Information Value Date Recorded Sex Assigned at Not on file 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
--- OUTSIDE RECORDS SUMMARY | 2025-02-03 19:43 | XMS_ITS | Encounter Summary ---
Author Organization [facility] Address [address] [place] [address] Care Team Providers Care Resident Buyer Name Role Phone Gretel Benson APN Primary Care Provider Encounter Details Date Type Department Care Team (Latest Contact Info) Description 11/10/2003 Outpatient Historical [facility] [address] [place] [address] Amira Clements MD NO ADDRESS ON FILE MALIG NEOPLASM BREAST UP-OUTER (CMS/HCC) (Primary Dx) Social History Tobacco Use Types Packs/Day Years Used Date Smoking Tobacco: Never Assessed Comments Unknown Sex and Gender Information Value Date Recorded Sex Assigned at Not on file 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 [place] [address] PCP - General 05/13/08 documented as of this encounter
--- OUTSIDE RECORDS SUMMARY | 2025-02-03 19:43 | XMS_ITS | Encounter Summary ---
Author Organization [facility] Address [address] [place] [address] Care Team Providers Care Mechanical Oxidizer Name Role Phone Gretel Benson APN Primary Care Provider Encounter Details Date Type Department Care Team (Latest Contact Info) Description 09/26/2004 Outpatient Historical [facility] Plastic Surgery [address] 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 [place] [address] PCP - General 05/13/08 documented as of this encounter
--- OUTSIDE RECORDS SUMMARY | 2025-02-03 19:43 | XMS_ITS | Encounter Summary ---
Author Organization [facility] Address [address] [facility] [place] [address] Care Team Providers Care Staff Anesthetist Name Role Phone Gretel Benson APN Primary Care Provider [phone] Encounter Details Date Type Department Care Team (Latest Contact Info) Description 04/13/[address] 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 [facility] 4 [place] [address] PCP - General 05/13/08 documented as of this encounter
--- OUTSIDE RECORDS SUMMARY | 2025-02-03 19:43 | XMS_ITS | Encounter Summary ---
Author Organization [facility] Address [address] [place] [facility] [place] [address] Care Team Providers Care Electronic Resources Librarian Name Role Phone Gretel Benson APN Primary Care Provider [phone] Encounter Details Date Type Department Care Team (Latest Contact Info) Description 11/09/2003 Outpatient Historical [facility] MitzyHenry goodman MD NO ADDRESS ON FILE MALIGN NEOPL BREAST NEC (CMS/HCC) (Primary Dx) Social History Tobacco Use Types Packs/Day Years Used Date Smoking Tobacco: Never Assessed Comments Unknown Sex and Gender Information Value Date Recorded Sex Assigned at Not on file 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 [facility] [address] [place] [address] PCP - General 05/13/08 documented as of this encounter
[2025-02-03 19:58] VITALS: BP 167/82; O2SAT 99
--- NOTE | 2025-02-03 20:13 | CTR_ITS ---
PROCEDURE INFORMATION: Exam: CT Pelvis Without Contrast, Skeleton Exam date and time: 02/03/2025 8:28 PM Age: 69 years old Clinical indication: Hip pain; Left hip; Additional info: Left hip pain TECHNIQUE: Imaging protocol: Computed tomography of the pelvis without contrast. Exam focused on the skeleton. Radiation optimization: All CT scans at this facility use at least one of these dose optimization techniques: automated exposure control; mA and/or kV adjustment per patient size (includes targeted exams where dose is matched to clinical indication); or iterative reconstruction. COMPARISON: CT chest abdpel [id number] 04/16/2022 6:57 PM RADIATION DOSE METRICS: Total DLP (mGy-cm): 524.97 FINDINGS: Vasculature: Aortic atherosclerosis. Bones/joints: Moderate to severe degenerative changes of visualized lumbar vertebral bodies with endplate spurring and disc space narrowing. Mild degenerative changes bilateral hips. No acute fracture. Otherwise Unremarkable. No acute fracture. No dislocation. Soft tissues: Atrophic gynecologic organs. Questionable lipoma along left IT band. Unremarkable. CT/CT bony pelvis [id number] IMPRESSION: Mild degenerative changes bilateral hips. No acute fracture.
--- NOTE | 2025-02-03 20:25 | ED_ITS ---
HPI - Back Pain/Injury General: Chief Complaint: Back Pain/Injury Stated Complaint: fell on lt hip Time Seen by Provider: 02/03/25 19:44 History of Present Illness: Patient is a 69-year-old female that had a fall today approximately 3?4 PM where she slipped, fell on her left hip. She had pain directly on her left hip and low back. Is difficult with walking. She states when she stands and has pressure on the left leg is when it causes her the most pain. She was seen by her primary care physician today, that obtained an x-ray, that was negative through PCP. Patient states she continues to have pain if she has pressure on that left foot. Associated symptoms: Deny abdominal pain, chills, fever(s), nausea or vomiting Related Data Previous Rx's ?Medication ?Instructions ?Recorded Diabetic Shoes with 3 pairs of #1 ea 02/16/20 molded inserts Diabetic shoes with inserts #1 ea 04/12/21 cuff and collar brace #1 ea 06/28/22 diabetic shoes with 3 inserts #1 ea 11/08/22 nebulizers #1 ea 12/03/22 allopurinol 300 mg tablet See Rx Instructions .Route 0 10/20/24 .COMPLEX #90 tabs magnesium oxide 400 mg PO BID 90 days #180 c aps 10/20/24 metformin 500 mg tablet,extended 500 mg PO BID 90 days #180 tabs 10/20/24 release 24 hr potassium chloride 10 mEq See Rx Instructions .Route 0 10/20/24 tablet,extended release .COMPLEX #90 tabs left knee medial pouch maker brace #1 ea 10/26/24 glipizide 5 mg tablet, extended See Rx Instructions .R oute 11/19/24 release 24 hr .COMPLEX #60 tabs blood sugar diagnostic (Blood #100 ea 01/18/25 Glucose Test strips) methocarbamol 500 mg tablet 500 mg PO Q8H PRN muscle s pasm #30 02/03/25 tabs Allergies Allergy/AdvReac Type Severity Reaction Status Date / Time gabapentin Allergy Unknown Verified 02/03/25 19:46 pregabalin (From Lyrica) AdvReac Intermediate weight gain Verified 02/03/25 19:46 Review of Systems General: Reports: 10 or more systems reviewed and unremarkable except in HPI and below Const: Denies: fever(s) or chills Eyes: Denies: change in vision or blurry vision ENMT: Denies: throat pain or dry mouth Card: Denies: chest pain or palpitations Resp: Denies: dyspnea or non-productive cough GI: Denies: abdominal pain, nausea or vomiting : Denies: flank pain or difficulty voiding Musc: Reports: back pain, extremity pain, joint pain, joint stiffness and limited range of motion; Denies: extremity swelling, joint swelling, joint redness, muscle weakness or decrease in muscle mass Skin/Breast: Denies: rash or pruritus Neuro: Denies: headache(s) or numbness in extremities Psych: Denies: anxiety or depression PFSH ED PFSH: Medical History (Updated 02/03/25 @ 21:20 by GENIA Epstein) Osteoarthritis of hands, bilateral Proximal humerus fracture Hyperlipidemia Hypothyroidism Diabetes mellitus ASHD (arteriosclerotic heart disease) Neuropathy Hypertension Hx of osteomyelitis HX: breast cancer Surgical History Hx of cholecystectomy (2015) History of rectal surgery (1996) Repair of perirectal abscess History of bariatric surgery (2015) Gastric sleeve procedure Hx of total mastectomy of right breast (2003) Right modified radical mastectomy with TRAM flap reconstruction Family History Grandfather CAD (coronary artery disease) Stroke Family/Other Diabetes Father Hypertension Dementia Lung disease Mother Cancer Denies family history of Clotting disorder Chronic kidney disease (CKD) Suicide Anesthesia complication Bleeding disorder Social History Smoking and tobacco/nicotine status: never used tobacco/nicotine Second hand smoke exposure: No Alcohol intake: never Substance/Drug Use: never Lives independently: Yes Household members: spouse Marital status: Current occupational status: retired Current gender identity: Female Physical Exam Const: COMMON NORMALS: no acute distress, average body habitus and patient oriented x3 HENMT: COMMON NORMALS: normocephalic and atraumatic HEAD & SCALP: n ormocephalic and atraumatic Chest: COMMONS NORMALS: normal inspection of the chest and normal palpation of entire chest wall Resp: COMMON NORMALS: normal respiratory effort Cardio: COMMON NORMALS: regular rate and regular rhythm RATE: regular rate RHYTHM: regular rhythm : COMMON NORMALS: Yes no CVA tenderness BLADDER/KIDNEY EXAM: Yes no CVA tenderness Back/Pelvis: COMMON NORMALS: no CVA tenderness LUMBAR SPINE/LOWER BACK: Yes ROM limited (due to pain), Yes pain with ROM, Yes lumbar spinal tenderness Lumbar spinal tenderness location: L5 and Yes paraspinal muscle tenderness PELVIS: Yes buttocks normal SACROILIAC JOINTS: Yes SI joints normal Extremity: COMMON NORMALS: normal to inspection, full ROM and capillary refill normal LEFT LOWER EXTREMITY: Yes hip joint Left hip: Yes palpation (pain ) and Yes special tests Left hip special tests: 90-?90 straight leg raise test: Negative Neuro: COMMON NORMALS: patient oriented x3 Psych: COMMON NORMALS: mental status grossly normal, Normal thought process present and cooperative THOUGHT PROCESS: Normal thought process present Course Vital Signs: Vital signs: Vital Signs Temperature 97.7 F 02/03/25 19:42 Pulse Rate 79 02/03/25 21:51 Respiratory Rate 18 02/03/25 21:51 Blood Pressure 125/61 02/03/25 21:51 Pulse Oximetry 99 02/03/25 21:51 MDM - Back Pain/Injury Medical Decision Making Patient is a 69-year-old female, DM, fell today and went to her primary care physician. X-ray was negative. On evaluation at bedside, she did not have tenderness with external version of her lower extremity. She has pain with planting her left foot. With this concern, a CT was obtained to check for fracture, occult of the left hip or pelvis. This was negative. Patient was given Norflex, and Toradol. She is sensitive to narcotics. Plan is to discharge home with close follow-up with primary. All of her questions were answered to her satisfaction. Medical Records I reviewed the patient's medical records. Labs Radiology Impressions Pelvis CT 02/03/25 20:13 IMPRESSION: Mild degenerative changes bilateral hips. No acute fracture. All radiology interpretation(s) finalized by discharge ED provider radiology interpretation(s): negative Discharge Plan Discharge Patient Disposition: Home Clinical Impression: Contusion of left hip Qualifiers: Encounter type: initial encounter Qualified Code(s): S70.02XA - Contusion of left hip, initial encounter Condition: Stable Prescriptions: New methocarbamol 500 mg tablet 500 mg PO Q8H PRN (Reason: muscle spasm) Qty: 30 0RF No Action (DME) Diabetic Shoes with 3 pairs of molded inserts See Rx Instructions .ROUTE .MEDSUPPLY Qty: 1 0RF Rx Instructions: As directed (DME) Diabetic shoes with inserts See Rx Instructions .Route .MEDSUPPLY Qty: 1 0RF Rx Instructions: As directed (DME) cuff and collar brace See Rx Instructions .Route .MEDSUPPLY Qty: 1 0RF Rx Instructions: As directed (DME) nebulizers Misc See Rx Instructions .Route Qty: 1 0RF Rx Instructions: 1 nebulixer and all requied supplies (DME) diabetic shoes with 3 inserts See Rx Instructions .Route .MEDSUPPLY Qty: 1 0RF Rx Instructions: As directed to HOME potassium chloride 10 mEq tablet extended release See Rx Instructions .ROUTE .COMPLEX Qty: 90 1RF Dose Instruction: TAKE 1 TABLET DAILY Rx Instructions: TAKE 1 TABLET DAILY metformin 500 mg tablet extended release 24 hr 500 mg PO BID 90 Days Qty: 180 1RF magnesium oxide 400 mg magnesium capsule 400 mg PO BID 90 Days Qty: 180 1RF allopurinol 300 mg tablet See Rx Instructions .ROUTE .COMPLEX Qty: 90 1RF Dose Instruction: TAKE 1 TABLET DAILY Rx Instructions: TAKE 1 TABLET DAILY (DME) left knee medial pouch maker brace See Rx Instructions .Route .MEDSUPPLY Qty: 1 0RF Rx Instructions: As directed glipizide 5 mg tablet extended release 24hr See Rx Instructions .ROUTE .COMPLEX Qty: 60 4RF Dose Instruction: Take 1 tablet by mouth twice daily Rx Instructions: Take 1 tablet by mouth twice daily (DME) Blood Glucose Test Strip See Rx Instructions .Route Qty: 100 3RF Rx Instructions: As directed Discharge Orders: Discharge ED (Routine); Ordered 02/03/25 Ordered By: Brandi Mejía Referrals: Jillian Rincon FNP-C [Primary Care Provider, Family Practice] Discharge Diet: Usual diet Discharge Activity: Limit activity as instructed Patient Instructions: Hip Contusion (ED), Patient Portal & Shaji Instructions Activity Restrictions/Additional Instructions: You may ice, elevate, and rest. Move your legs at least every 1-2 hours to avoid clots. Utilize Tylenol for pain. Your muscle relaxer was sent to the pharmacy. Caution on oversedation. Return to ED for worsening pain, inability to ambulate, or fever greater than 100.4 ?F Is important to follow-up with your physician regarding today's visit. Please call tomorrow for follow-up appointment. Print Language: Welsh Coding Level of Care Code ED Bioanalyst for Minor Ragsdale
[2025-02-03] MEDS: orphenadrine 30 mg/mL Inj 2 mL 60 MG IM (21:28)
[2025-02-03 21:51] VITALS: BP 125/61; PULSE 79; RESP 18; O2SAT 99
== END 2025-02-03 21:52 | disposition home or self-care (01) ==
PROVIDERS: Emergency Provider Physician Assistant; PCP Nurse Practitioner Family
DX: S70.02XA Contusion of left hip, initial encounter (principal); Z79.84 Long term (current) use of oral hypoglycemic drugs; E78.5 Hyperlipidemia, unspecified; E11.40 Type 2 diabetes mellitus with diabetic neuropathy, unspecified; Z85.3 Personal history of malignant neoplasm of breast; W01.0XXA Fall on same level from slipping, tripping and stumbling without subsequent striking against object, initial encounter
CPT/HCPCS: 72192; 96372; 99284; J1885; J2360

== ENCOUNTER → 2025-04-06 08:43 | Outpatient (BNVA) | payer MEDICARE, SELFPAY | PROVIDERS: PCP Family Medicine; Visit Provider Podiatrist Foot & Ankle Surgery | DX: E11.42 Type 2 diabetes mellitus with diabetic polyneuropathy (principal); L60.3 Nail dystrophy; E11.8 Type 2 diabetes mellitus with unspecified complications; I73.9 Peripheral vascular disease, unspecified; Z79.84 Long term (current) use of oral hypoglycemic drugs | CPT/HCPCS: 11721 ==

== ENCOUNTER → 2025-05-04 16:30 | Outpatient (BNVA) | payer MEDICARE, SELFPAY | PROVIDERS: PCP Family Medicine; Visit Provider Student in an Organized Health Care Education/Training Program | DX: E11.9 Type 2 diabetes mellitus without complications (principal); Z01.818 Encounter for other preprocedural examination | CPT/HCPCS: 36415; 80053; 81001; 83036; 85025 ==

== ENCOUNTER 2025-05-10 15:38 | Outpatient (CLI) | payer MEDICARE, SELFPAY ==
--- NOTE | 2025-05-10 16:00 | CT_ITS ---
WS: [id number] CT LEFT KNEE, NONCONTRAST [facility] TECHNIQUE: Noncontrast CT of the LEFT knee to include the LEFT hip and ankle. CLINICAL INFORMATION: surgical planning DLP: 984.[address] scans at [facility] use at least one of these dose optimization techniques: automated exposure control; mA and/or kV adjustment per patient size (includes targeted exams where dose is matched to clinical indication); or iterative reconstruction. FINDINGS: Osteopenia. Advanced degenerative arthritis LEFT knee worse in the medial joint compartment. Hypertrophic patella. Moderate suprapatellar effusion. Vascular calcification. Degenerative arthritis sacroiliac joints. Moderate degenerative narrowing of both hips. CT/CT knee LT ABIEL [id number] IMPRESSION: Images obtained for preoperative purposes.
== END 2025-05-10 15:39 | disposition home or self-care (01) ==
LOC: RAD 15:39
PROVIDERS: PCP Family Medicine; Visit Provider Student in an Organized Health Care Education/Training Program
DX: M17.12 Unilateral primary osteoarthritis, left knee (principal); M85.88 Other specified disorders of bone density and structure, other site; M22.8X2 Other disorders of patella, left knee; M25.462 Effusion, left knee; I70.292 Other atherosclerosis of native arteries of extremities, left leg; M16.0 Bilateral primary osteoarthritis of hip
CPT/HCPCS: 73700

== ENCOUNTER 2025-05-24 10:53 | Observation (INO) | payer MEDICARE, SELFPAY ==
[2025-05-24] VITALS (19 sets, daily range): BP systolic 107–146; BP diastolic 55–86; PULSE 63–145; RESP 10–21; TEMP 36.2–36.9; O2SAT 90–98; BMI 31.6
--- NOTE | 2025-05-24 07:20 | W.PM.OPSUD ---
Surgery/Procedure H&P Update DATE OF PROCEDURE: May 24, 2025 DATE H&P PERFORMED: 05/04/25 H&P UPDATE INFORMATION: I have reviewed H&P completed within last 30 days, I have examined patient prior to procedure and No changes to prior documentation CHANGES TO PREVIOUS DOCUMENTATION: Patient is cleared the preoperative clearance process and ready to proceed with left total knee arthroplasty?Pavan robotic assisted. Patient's failed to respond to conservative treatment ready proceed with left total knee today. She is cleared the preoperative clearance process. Please refer to patient's heart and lung findings to the anesthesia preop operative evaluation. All questions answered at this time. PREOP DIAGNOSIS: Left knee DJD PRIMARY INDICATION FOR PROCEDURE: Left knee DJD PLANNED PROCEDURE: Operation Date: 05/24/25 09:15 Proposed Procedures p Pavan Robot Total Knee Arthroplasty(Left) - Jb Ervin DO
--- NOTE | 2025-05-24 07:41 | ECG_ITS ---
[facility]: 2025-05[facility]24 Pat Name: Joan Núñez Department: Room: Gender: Female Telemetry Monitor: : 1955 Requested By: Jb Ervin Order Number: [id number] Stan MD: Kelsey Morejon M.D. Measurements Intervals [place] Rate: 140 P: -20 MN: 110 QRS: 28 QRSD: 73 T: 87 QT: 318 QTc: 486 Interpretive Statements SINUS TACHYCARDIA WITH SHORT MN INTERVAL, POSSIBLE ATRIAL FLUTTER NONSPECIFIC ST & T-WAVE ABNORMALITY ABNORMAL RHYTHM ECG No previous ECG available for comparison Electronically Signed On 05-24-2025 10:41:36 BISCUIT FACTORY WORKER by Kelsey Morejon M.D. [email or web address]
[2025-05-24] MEDS: metoprolol tartrate 1 mg/1 mL SDV 5 mL 5 MG IVP (08:13)
[2025-05-24 08:17] LABS: Hematocrit 40.8 % (36-47); Hemoglobin 13.30 g/dL (11.27-16.99); Mean Corpuscular HGB Conc 32.6 g/dL (30-55); Mean Corpuscular Hemoglobin 29.0 pg (27-33); Mean Corpuscular Volume 88.9 fl (85-98); Nucleated Red Blood Cells % 0 %; Platelet Count 214 10^3/cmm (157-399); Red Blood Count 4.59 10^6/uL (3.85-5.65); White Blood Count 4.32 10^3/uL (3.29-11.43)
--- NOTE | 2025-05-24 08:30 | ANES.PREANE2 ---
Pre-Anesthetic Assessment Height/Weight: Height 1.6 m Weight 81.193 kg Temp Pulse Resp BP Pulse Ox O2 Del Method 97.3 F L 63 18 136/76 95 Room Air 05/24/25 07:24 05/24/25 08:50 05/24/25 08:50 05/24/25 08:50 05/24/25 08:50 05/24/25 08:50 Preop Diagnosis: Left knee DJD Operation Date: 05/24/25 09:15 Proposed Procedures p Pavan Robot Total Knee Arthroplasty(Left) - Jb Ervin DO Familial anesthetic complications: None Was Beta Terra taken within 24 hours: N/A Was Clonidine taken within 24 hours: N/A Last intake: Intake Last Liquid Date 05/23/25 Last Liquid Time 23:00 Last Solid Date 05/23/25 Last Solid Time 23:00 Social No alcohol and No tobacco Exam alert, oriented x 3, clear to auscultation bilaterally and regular rate & rhythm CV/HEM Arrythmia (s/p ablation - not on blood thinners since), Coronary Artery Disease, Hypertension and Peripheral Vascular Disease HR 140 on EKG, patient asymptomatic, no CP, SOB. Has not been having symptoms at home. Patient HD stable upon presentation. Reviewed EKG with Dr. Seaman. Metropolol 5 mg IV given with adequate rate response. Neuropsych TIAs Anesthetic Plan ASA status: 3 Anesthesia: Regional (specify below) Risk of > 500 ml blood loss (7ml/kg in children): No Medications/Allergies Home Medications ?Medication ?Instructions ?Recorded ?Confirmed ?Last Taken ?Type Diabetic Shoes with 3 pairs of #1 ea 02/16/20 05/13/25 05/23/25 Rx molded inserts Diabetic shoes with inserts #1 ea 04/12/21 05/13/25 05/23/25 Rx cuff and collar brace #1 ea 06/28/22 05/13/25 05/23/25 Rx diabetic shoes with 3 inserts #1 ea 11/08/22 05/13/25 05/23/25 Rx magnesium oxide 400 mg PO BID 90 days #180 caps 10/20/24 05/21/25 05/23/25 Rx left knee medial vp product management brace #1 ea 10/26/24 05/13/25 05/23/25 Rx blood sugar diagnostic (Blood #100 ea 01/18/25 05/13/25 05/23/25 Rx Glucose Test strips) glipizide 5 mg tablet, extended 5 mg PO DAILY #180 tabs 04/12/25 05/21/25 05/23/25 Rx release 24 hr metformin 500 mg tablet,extended 500 mg PO BID 90 days #180 tabs 04/12/25 05/21/25 05/23/25 Rx release 24 hr allopurinol 300 mg tablet 300 mg PO DAILY 05/21/25 05/21/25 05/23/25 History potassium chloride 10 mEq 10 meq PO DAILY 05/21/25 05/21/25 05/23/25 History tablet,extended release Allergies Allergy/AdvReac Type Severity Reaction Status Date / Time gabapentin Allergy Unknown Verified 05/21/25 10:15 pregabalin (From Lyrica) AdvReac Intermediate weight gain Verified 05/21/25 10:15 Current Medications Generic Name Dose Route Start Last Admin Trade Name Freq PRN Reason Stop Dose Admin Sodium Chloride 1,000 mls @ 30 mls/hr 05/24/25 07:30 05/24/25 08:23 Sodium Chloride 0.9% IV 05/25/25 07:29 30 mls/hr .Q24H SHRUTI Administration PFSH Anesthesia Medical History Osteoarthritis of hands, bilateral Proximal humerus fracture Hyperlipidemia Hypothyroidism Diabetes mellitus ASHD (arteriosclerotic heart disease) Neuropathy Hypertension Hx of osteomyelitis HX: breast cancer Surgical History Hx of cholecystectomy (2015) History of rectal surgery (1996) Repair of perirectal abscess History of bariatric surgery (2015) Gastric sleeve procedure Hx of total mastectomy of right breast (2003) Right modified radical mastectomy with TRAM flap reconstruction Family History Grandfather CAD (coronary artery disease) Stroke Family/Other Diabetes Father Hypertension Dementia Lung disease Mother Cancer Denies family history of Clotting disorder Chronic kidney disease (CKD) Suicide Anesthesia complication Bleeding disorder Social History Smoking and tobacco/nicotine status: never used tobacco/nicotine Second hand smoke exposure: No Alcohol intake: never Substance/Drug Use: never Lives independently: Yes Household members: spouse Marital status: Current occupational status: retired Current gender identity: Female Data Anesthesia 05/24/25 08:05 05/24/25 08:05 Short CBC 05/24/25 Range/Units 08:05 WBC 4.32 (3.29-11.43) 10^3/uL Hgb 13.30 (11.27-16.99) g/dL Hct 40.8 (36-47) % MCV 88.9 (85-98) fl Plt Count 214 (157-399) 10^3/cmm Neut % (Auto) 55.7 % Neut # (Auto) 2.41 (1.8-7.7) 10^3/uL BMP 05/24/25 08:05 Sodium 141 Potassium 4.1 Chloride 103 Carbon Dioxide 26 BUN 18 Creatinine 0.6 Glucose 104 Calcium 9.3 Blood Bank 05/24/25 08:05 Blood Type A Positive Rho(D) Type Rh positive Antibody Screen Negative Cardiac Studies: Echocardiogram 12/25/24 Echocardiogram Ultrasound 09/14/20 Sestamibi Stress Test (Cardiology) 10/24/23 Holter Monitor 06/03/20
[2025-05-24 08:33] LABS: Anion Gap 16.1 (5-19); Blood Urea Nitrogen 18 mg/dL (8-23); Calcium 9.3 mg/dL (8.5-10.5); Carbon Dioxide 26 mmol/L (22-29); Chloride 103 mmol/L (98-107); Glucose 104 mg/dL (65-115); Osmolality Calculated 294 mOsm/kg (285-295); Potassium 4.1 mmol/L (3.5-5.1); Sodium 141 mmol/L (136-145)
--- NOTE | 2025-05-24 08:33 | ECG_ITS ---
[facility] Date: 2025-05-24 Pat Name: Joan Núñez Department: Room: Gender: Female Gis Software Developer: : 1955 Requested By: Milvia Allsion Order Number: [id number] Stan MD: Kelsey Morejon M.D. Measurements Intervals [place] Rate: 61 P: 33 WI: 181 QRS: 15 QRSD: 79 T: 61 QT: 419 QTc: 423 Interpretive Statements SINUS RHYTHM POSSIBLE ANTERIOR MYOCARDIAL INFARCTION , OF INDETERMINATE AGE [30 ms Q WAVE IN V3/V4, OR R < 0.2 mV IN V4] Compared to ECG 05/24/2025 07:44:31 Myocardial infarct finding now present T-wave abnormality no longer present Electronically Signed On 05-24-2025 10:41:15 BOARD RUNNER by Kelsey Morejon M.D. [email or web address]
[2025-05-24] MEDS: acetaminophen 1,000 MG/100 ML PIGGYBACK 400 MG IV ×2 (08:54→16:01)
[2025-05-24] MEDS: ceFAZolin 2,000 MG in sodium chloride 0.9% (plus) 50 ML 100 MG IV ×2 (08:56→17:13)
--- NOTE | 2025-05-24 08:58 | PC.NURSE ---
Patient presented with tachycardia. Spoke with Dr. Allison and 5mg of Metoprolol tartrate was given to patient. EKG was done before and after medication. Patient reports no chest pain.
[2025-05-24] MEDS: ROPivacaine 0.2% Premix 100 mL 200 MG INTRA-ARTI (10:10)
--- NOTE | 2025-05-24 11:02 | XRR_ITS ---
PROCEDURE INFORMATION: Exam: XR Left Knee Exam date and time: 05/24/2025 12:14 PM Age: 70 years old Clinical indication: Device placement; Joint replacement hardware; Prior surgery; Surgery date: Post-operative (0-2 days); Surgery type: Left tka; Additional info: Post L tka, do in pacu TECHNIQUE: Imaging protocol: Radiologic exam of the left knee. Views: 1 or 2 views. COMPARISON: CT knee LT [facility] [id number] 05/10/2025 3:57 PM FINDINGS: Bones/joints: Status post left knee arthroplasty. Hardware is intact. Anatomic alignment. No perihardware lucency. No acute fracture or dislocation. Soft tissues: Cutaneous louie overlie the left knee. Soft tissue swelling and gas in the left knee. XR/XR knee LT 1-2V [id number] IMPRESSION: Status post left knee arthroplasty without evidence of hardware failure.
--- NOTE | 2025-05-24 11:10 | P.OP_ITS ---
Operative Report Date of procedure: May 24, 2025 Surgeon: Jb Ervin DO Airport Engineer: Michael Ervin PA-C: PA was necessary for assistance in this case with leg positioning retraction and protection of neurovascular structures as well as assistance in implantation wound closure and dressing application. Procedure: Preoperative diagnosis: Left knee degenerative joint disease Post-op diagnosis: Same Procedure done: Left total knee arthroplasty, cemented?robotic assisted Pavan Implants: [place] triathlon size 3 femur CR cemented?left [place] triathlon size? 3 tibia universal baseplate cemented [place] triathlon symmetric patella size 27 mm Vandana triathlon polyethylene 11mm Surgeon: Jb Ervin DO Estimated blood?loss: 25 mL Tourniquet 53minutes IV fluids: 1200 mL Urine output: 350 mL Complications: None Condition: stable Disposition: floor Brief History: Patient is a 70-year-old female with with chronic?left knee degenerative joint disease.? Patient has been worked up in the outpatient setting in the orthopedic office at this point time through shared decision making given? [id number] arthritis as well as failed conservative treatment, and pt would?like to proceed with a?left total knee arthroplasty.? Through shared decision making elected to proceed with surgical intervention for?left total knee arthroplasty.? We talked about continued conservative treatment and surgical intervention as far as the risk benefits complications alternatives surgical and nonsurgical treatment options.? At this point time understanding patient risks with surgery pt agrees to proceed with surgical intervention.? Once again? risk with surgery include but are not?limited to make it better make it worse blood clot, heart attack, stroke, on the table, infection, injury to nerves or vessels, persistent pain, arthrofibrosis, implant failure.? Understanding these risks patient agrees to proceed with surgical intervention consent was obtained in the preoperative holding area.? All questions answered. Procedure: Patient was seen and evaluated in the preoperative holding area.? Consent was reviewed and signed with patient with plan for?left total knee arthroplasty.? All questions answered.? Correct extremity marked.? Patient seen and evaluated by the anesthesia department and once cleared for surgery was taken back to the operative suite.? Patient was placed into a supine position on the OR table.? All bony prominences were well-padded.? Patient was appropriately secured to the bed.? Patient underwent anesthesia per the anesthesia department.? Patient received anesthesia and? Garzon catheter was placed.? A nonsterile tourniquet was applied to the?left thigh.? At this point in time a final timeout performed.? Patient received appropriate preoperative antibiotics. Next the?left?lower extremity was then prepped and draped in standard orthopedic fashion. Esmarch tourniquet was used exsanguinate the?left?lower extremity.? Tourniquet was insufflated to 250 mmHg. A standard anterior incision was made over midline of the knee.? Sharp scalpel excision through skin and subcutaneous tissue full-thickness skin flaps were made.? Fascia was elevated off of the extensor retinaculum was stable with medial parapatellar arthrotomy was then made.? The performed standard sequential releases..? Immediately on entry into the joint patient was found to have severe eburnated bone and tricompartmental arthritic changes noted.? With significant osteophyte formation.? Next the the patella was then stuffed and the knee was then flexed.?? Vicente was placed superiorly around the anterior aspect of the femur this was freed of synovium and I subsequently then placed by 2 femur pins to establish my femur arrays for the Pavan robot.? These were then placed bicortically and? femur array was then appropriately secured with appropriate visualization.? Next attention was turned towards the tibial rays.? These were then drilled sequentially bicortically in parallel fashion and intraincisional.? I then placed my guide as well as my tibial array on in place.? This was appropriately secured and had excellent visualization with the Pavan robot.? Next the tibial checkpoint as well as femur checkpoint were then placed.? At this point time I then subsequently established my head center as well as my medial?lateral malleoli as well as my checkpoints.? Next utilizing standard Pavan technology I then mapped out the appropriate points and confirmation points around the femur as well as the tibia in standard fashion.? Once this was then done I then removed all osteophytes in preparation for dynamic testing.? All osteophytes were removed as well as I removed the ACL and the PCL was excised due to its significant tearing and degeneration noted.? At this point time the knee was brought into full extension and we performed our standard evaluation of our gap balancing stressing his?ligaments and extension as well as flexion appropriate adjustments were made to have appropriate gap balancing in both flexion and extension.? This plan for final cuts. Were able to correct patient's deformity up to patient's ligamentous tolerances. We get a p reoperative plan evaluating our implants which was a size 3 femur and a size 3 tibia.? Next we brought in the Pavan robot and sequentially made our femur cuts.? All excess bony cuts were then removed.? Finally we made our tibial cut.? Once this was done a standard PCL retractor was then placed into this position I excised the medial and?lateral meniscus.? The tibial cut was then subsequently removed all excess bony debris was removed.? I then utilized a?lamina dubbing machine operator and remove the posterior osteophytes.? At this point time sized the tibia and confirmed this was a size 3.? I utilized our blunt probe to establish rotation of tibial implant.? Once this was done I then placed my tibia size 3 trial in appropriate position and then subsequently placed tibial pins to hold this into place and trialed up to a size 11 mm poly as well as a size 3 femur which was appropriately impacted in place knee was then subsequently brought into extension. Trials were then assessed,? this was stable with varus valgus stress in extension as well as had symmetrical translation when brought into flexion demonstrating symmetrical gaps. I had excellent balance gaps in flexion and extension with varus and valgus stresses.? At this point I was satisfied with these implants these were then verified and opened on the back table size 3 tibia, size 3 femur,? size 11 mm polythickness.? We did confirm appropriate gap balancing and stresses as well as alignment utilizing? Pavan and were satisfied with this plan.? ?At this point time with my trials in place I then towel clip the patella everted this made appropriate measurements subsequently utilizing freehand technique performed by patellar resurfacing this was confirmed to be appropriate resection and subsequently sized to be a 27 mm symmetric.? My drill peg guides were then clamped and appropriate position and appropriate position in the patella for appropriate tracking and parallel with the joint.? Pegs were drilled trial implant was placed and the knee was then subsequently ranged and found to have excellent patellar tracking.? Femur pegs were then drilled.? At this point time all of our trial implants were removed.? All checkpoints as well as guidepins and arrays were removed and appropriate counts made.?Satisfied with our tibial placement rotation I then utilized the keel punch and prepped the tibia.? The wound bed? was thoroughly irrigated and dried and prepped for cementation.? Cement was mixed on the back table.? Once cement was ready this was then covered onto the tibia and the tibial baseplate was then impacted and all excess cement was removed.? Next the polyethylene was then impacted into place on the tibial baseplate.? Next cement was placed onto the femur as well as under the femur implants and impacted in to place and all excess cement was extruded and removed.? Knee was taken into full extension? to clear all excess cement was removed.? Warm saline was placed over the joint.? I then towel clip patella and dried for cementation. cemented the patella into place.? This was all clamped and the cement was allowed to cure.? Thorough irrigation performed with pulse?lavage.? I then placed my periarticular injection while the cement was curing.? Once cured the knee was taken through range of motion and had excellent stability and gaps were balanced in flexion and extension.? Tourniquet was then deflated. hemostasis satisfactory with electrocautery.? Vancomycin powder placed in wound bed for antibiotic infection prophylaxis. Next I then subsequently closed the capsule with Ethibond suture as well as a running strata fix suture.? Knee was then taken through range of motion 30 times.? Next the skin was then closed in?layered fashion of running stratifix sutures of deep and subcutenous tissue and skin.? ?Skin closed with louie, incision was covered with gomez incisional VAC dressing, with ABDs soft roll and Tex wrap.? Patient was then awakened from anesthesia and taken to PACU in stable condition. Disposition: Patient taken to PACU in stable condition will be admitted to the floor for pain control PT/OT weight-bear as tolerated?left?lower extremity dressing changes as needed, DVT prophylaxis. Pain control. Patient will receive appropriate postoperative antibiotics. patient will be seen today by the internal medicine team for medical management.? Patient will follow up with the office in 2 weeks.? Patient understands agrees with current plan.? All questions answered.
--- NOTE | 2025-05-24 11:13 | W.PM.BPON ---
Date of Procedure: [May 24, 2025] Surgeon: [Dr. Ervin DO] Missile Control Pilot(s): [Michael Ervin PA-C] Procedure(s) performed: [Left total knee arthroplasty with Pavan robotic assist.] Findings of the procedure(s): [Left knee degenerative joint disease. Procedure went well and as planned.] Estimated blood loss: [25 mL] Specimen(s) removed: [Femur and tibial shape] Post-operative diagnosis: [Left knee degenerative joint disease]
--- NOTE | 2025-05-24 11:19 | PM.PACU ---
PACU note Narrative: Patient is a 70-year-old female who just underwent a left knee total arthroplasty. Pt transferred to PACU in stable condition. Dressing is dry. pt is awake and alert. pt can wiggle toes and plantarflex and dorsiflex foot. pt able to perform straight leg raise, Femoral nerve intact. Distal pulses are palpable toes are warm and well-perfused. Cap refill is normal and under 2 seconds. Sensation to foot is intact. Pain is controlled. Exam: awake Disposition: admitted
--- NOTE | 2025-05-24 11:45 | ANE.PACU2 ---
Inpatient post-anesthesia follow up: Airway intact: Yes Vital signs: Temperature 97.6 F Pulse Rate 65 Respiratory Rate 17 Blood Pressure 107/69 Pulse Oximetry 94 Oxygen Delivery Me thod Room Air Oxygen Flow Rate Fraction of Inspir ed Oxygen Hydration adequate: Yes Nausea and vomiting: No Pain level: 1 Mental status: Baseline Additional Comments: declines post op block
--- NOTE | 2025-05-24 11:51 | PC.NURSE ---
1147 - accepted into room 268 with GRETA Pavon at side - BP 137/69 - pulse 75 - 02 98% RR 20 temp 97.2 - no distress noted in pt upon this nurse exiting care
[2025-05-24] MEDS: calcium carb-vit d 600mg/400unit 1 Tablet 1 EACH PO (16:02)
[2025-05-24] MEDS: sennosides-docusate Tablet 2 TAB PO (16:02)
[2025-05-24] MEDS: mupirocin oint 22 gm 1 APPLIC NASAL (16:02)
[2025-05-24] MEDS: chlorhexidine gluconate 0.12% Btl 473 mL 30 ML MUCOUS MEM ×2 (16:05→22:47)
[2025-05-24] MEDS: oxyCODONE 5 mg IR Tab/Cap PO (17:13)
--- NOTE | 2025-05-24 20:27 | PM.CONSULT ---
Providers/Reason For Consult Consulting Physician/Specialty*: Orthopedic surgery Reason for Consult*: Medical management Requesting Physician: Dr. Jb Ervin Attending Physician: Jb Ervin DO Primary Care Provider: Jm Velez MD History of Present Illness History of Present Illness Joan Núñez is a 70 year old female with PMH of ASHD, HTN, AFIB (s/p ablation), HLD, DM 2T, hypothyroidism, breast cancer (in remission, s/p right total mastectomy), obesity (prior gastric sleeve), MDD, anxiety Patient presented to [facility] on 05/24/2025 for an elective total knee arthroplasty. Patient known to have degenerative joint disease. She has experienced progressive pain, functional decline and failed conservative therapy, including dulorane injections. Per records from orthopedic surgery patient experiences knee instability even when she wears her brace and persistent clicking. Today, 05/24/2025, patient underwent an elective left total knee arthroplasty. Hospitalist service is being consulted for management of patient's underlying medical conditions. Patient tolerated procedure well and reports feeling well. Thinks procedure was successful. Denies chest pain, palpitations, shortness of breath, abdominal pain, nausea, vomiting and diarrhea. No bowel movement since admission. She has eaten and tolerated her meal. She had a chance to walk the hallway and notes it to have been less difficult than prior to surgery. No specific concerns voiced at this time. Post-operative vital signs stable. Medications/Allergies Home Medications ?Medication ?Instructions ?Recorded ?Confirmed ?Last Taken ?Type Diabetic Shoes with 3 pairs of #1 ea 02/16/20 05/13/25 05/23/25 Rx molded inserts Diabetic shoes with inserts #1 ea 04/12/21 05/13/25 05/23/25 Rx cuff and collar brace #1 ea 06/28/22 05/13/25 05/23/25 Rx diabetic shoes with 3 inserts #1 ea 11/08/22 05/13/25 05/23/25 Rx magnesium oxide 400 mg PO BID 90 days #180 caps 10/20/24 05/21/25 05/23/25 Rx left knee medial director [employer] brace #1 ea 10/26/24 05/13/25 05/23/25 Rx blood sugar diagnostic (Blood #100 ea 01/18/25 05/13/25 05/23/25 Rx Glucose Test strips) glipizide 5 mg tablet, extended 5 mg PO DAILY #180 tabs 04/12/25 05/21/25 05/23/25 Rx release 24 hr metformin 500 mg tablet,extended 500 mg PO BID 90 days #180 tabs 04/12/25 05/21/25 05/23/25 Rx release 24 hr allopurinol 300 mg tablet 300 mg PO DAILY 05/21/25 05/21/25 05/23/25 History potassium chloride 10 mEq 10 meq PO DAILY 05/21/25 05/21/25 05/23/25 History tablet,extended release Allergies Allergy/AdvReac Type Severity Reaction Status Date / Time gabapentin Allergy Unknown Verified 05/21/25 10:15 pregabalin (From Lyrica) AdvReac Intermediate weight gain Verified 05/21/25 10:15 Current Medications Generic Name Dose Route Start Last Admin Trade Name Freq PRN Reason Stop Dose Admin Calcium Carbonate 1 each 05/24/25 17:00 05/24/25 16:02 Calcium Carb-Vit D 600mg/400unit 1 Tablet PO 1 each BID SHRUTI Administration Chlorhexidine Gluconate 30 ml 05/24/25 11:51 05/24/25 16:05 Chlorhexidine Gluconate 0.12% Btl 473 Ml MUCOUS MEM 30 ml QID SHRUTI Administration Docusate Sodium 100 mg 05/24/25 17:00 05/24/25 16:02 Docusate Sodium 100 Mg Capsule PO 100 mg BID SHRUTI Administration Acetaminophen 1,000 mg in 100 mls @ 400 mls/hr 05/24/25 16:30 05/24/25 16:51 Acetaminophen IV 05/25/25 08:44 Infused Q8H SHRUTI Infusion Lactated Ringer's 1,000 mls @ 100 mls/hr 05/24/25 11:51 05/24/25 12:15 Lactated Ringers IV 100 mls/hr .Q10H SHRUTI Administration Cefazolin Sodium 2,000 mg/ 50 mls @ 100 mls/hr 05/24/25 17:00 05/24/25 17:49 Sodium Chloride IV 05/25/25 09:29 Infused Q8H SHRUTI Infusion Protocol Mupirocin 1 applic 05/24/25 17:00 05/24/25 16:02 Mupirocin Oint 22 Gm NASAL 05/29/25 16:59 1 applic BID SHRUTI Administration Protocol Oxycodone HCl 5 mg 05/24/25 11:51 05/24/25 17:13 Oxycodone 5 Mg Ir Tab/Cap PO 5 mg Q4H PRN Administration MODERATE PAIN Polysaccharide Iron Complex 150 mg 05/24/25 18:00 05/24/25 17:13 Iron Polysaccharide Complex 150 Mg Capsule PO 150 mg BIDWM SHRUTI Administration Senna/Docusate Sodium 2 tab 05/24/25 17:00 05/24/25 16:02 Sennosides-Docusate Tablet PO 2 tab BID SHRUTI Administration PFSH Acute PFSH: Medical History Osteoarthritis of hands, bilateral Proximal humerus fracture Hyperlipidemia Hypothyroidism Diabetes mellitus ASHD (arteriosclerotic heart disease) Neuropathy Hypertension Hx of osteomyelitis HX: breast cancer Surgical History Hx of cholecystectomy (2015) History of rectal surgery (1996) Repair of perirectal abscess History of bariatric surgery (2015) Gastric sleeve procedure Hx of total mastectomy of right breast (2003) Right modified radical mastectomy with TRAM flap reconstruction Family History Grandfather CAD (coronary artery disease) Stroke Family/Other Diabetes Father Hypertension Dementia Lung disease Mother Cancer Denies family history of Clotting disorder Chronic kidney disease (CKD) Suicide Anesthesia complication Bleeding disorder Social History Smoking and tobacco/nicotine status: never used tobacco/nicotine Second hand smoke exposure: No Alcohol intake: never Substance/Drug Use: never Lives independently: Yes Household members: spouse Marital status: Current occupational status: retired Current gender identity: Female Vitals/I&O/Wt Last Vital Signs Temp 98.2 F 05/24/25 19:43 Pulse 75 05/24/25 19:43 Resp 18 05/24/25 19:43 BP 112/55 05/24/25 19:43 Pulse Ox 96 05/24/25 19:43 O2 Del Method Room Air 05/24/25 19:43 05/24/25 05/24/25 05/24/25 06:59 14:59 22:59 Intake Total 1640 / 1640 510 / 2150 Output Total 375 / 375 Balance 1265 / 1265 510 / 1775 Weight last 48 hrs Weight 80.966 kg Weight 81.193 kg Physical Exam Narrative: Constitutional: NAD Head: NC/AT Eyes: PERRLA, EOMI Ears: Normal external ears. Hearing intact to normal voice. Nose: Normal external nose. No epistaxis. Throat: MMM Respiratory: CTAB. No accessory muscle use. On room air. Cardiovascular: Regular Extremities: No edema bilaterally Gastrointestinal: Soft. NT. ND. +BS Genitourinary: No portillo catheter Musculoskeletal: Knee wrapped in Kerlix. Being iced. Left distal sensation intact. Patient can wiggle toes. DP 1+ Left knee with limited / fair ROM consistent with immediate postoperative status Urinary Catheter Management: Portillo: Cath Placed During This Visit: yes Reason for Continuing Indwelling Catheter: Required Immobilization for Trauma or Surgery or Anesthesia Urinary Catheter Date of Insertion: 05/24/25 Urinary Catheter Time of Insertion: 09:16 Data 05/24/25 08:05 05/24/25 08:05 Other Labs: Most recent labs reviewed, 05/24/2025 0805 Hemogram WBC 4.32 RBC 4.59 PLT 214 HGB 13.3 HCT 40.8 Chemistry Na 141 K 4.1 Cl 103 Ca 9.3 Glu 104 CO2 26 AG 16.1 BUN 18 Cr 0.6 Xray Ortho: My impression: post operative knee imaging reviewed Radiologist's impression: Findings: Bones/joints: Status post left knee arthroplasty. Hardware is intact. Anatomic alignment. No varsha-hardware lucency. No acute fracture or dislocation. Soft tissues: Cutaneous louie overlie the left knee. Soft tissue swelling and gas in the left knee. Impression Status post left knee arthroplasty without evidence of hardware failure. A&P Assessment and plan 1. Left knee DJD: 2. Primary hypertension: 3. Diabetes mellitus type 2, noninsulin dependent: 4. Cardiomyopathy: Plan: # Left knee DJD s/p left knee arthroplasty 05/24/2025 - Ortho primary and managing - Post-operative DVT prophylaxis with Eliquis 2.5 mg BID, to start 05/25/25, ortho has ordered - Pain control, current regimen includes Tylenol 1000 mg IV Q8H x3 then stop Hydromorphone 0.5 mg IV Q4H prn Ketorolac 15 mg IV Q6H prn, DISCONTINUE, re: history of barriatric surgery Oxycodone IR 5 mg PO Q4H prn Tramadol 50 mg PO Q4H prn - Bowel regimen w/ sennosides?docusate and docusate - Incentive spirometer at bedside, encouraged - PT/OT already consulted - CBC, BMP already ordered for 05/25 # Primary HTN BP trend reviewed, stable 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 If persistently elevated, ie > 180, then will start SSI - HOLD metformin while inpatient. - HOLD glipizide, not on pharmacy's formulary list # Cardiomyopathy - Compensated PDMP PDMP Reviewed: Not Reviewed Consult Attestations Medical Necessity Statement: Medical consultation is being pursued due to patient's co-morbid conditions, postoperative physiologic risks, need for daily medical decision making, and need for monitoring of blood pressure, electrolytes and renal function following arthroplasty. The complexity of care exceeds what can be safely managed by the surgical service alone, meeting necessity criteria for co-management. Coding Level of Care Code 33062 Diagnoses Left knee DJD M17.12 Primary hypertension I10 Diabetes mellitus type 2, noninsulin dependent E11.9 Cardiomyopathy I42.9
[2025-05-25] VITALS (7 sets, daily range): BP systolic 122–166; BP diastolic 62–71; PULSE 66–85; RESP 16–18; TEMP 36.3–36.7; O2SAT 94–99
[2025-05-25] MEDS: acetaminophen 1,000 MG/100 ML PIGGYBACK 400 MG IV ×2 (00:32→07:56)
[2025-05-25] MEDS: ceFAZolin 2,000 MG in sodium chloride 0.9% (plus) 50 ML 100 MG IV ×2 (00:50→09:18)
[2025-05-25] MEDS: calcium carb-vit d 600mg/400unit 1 Tablet 1 EACH PO ×2 (05:30→16:04)
[2025-05-25] MEDS: sennosides-docusate Tablet 2 TAB PO ×2 (05:30→16:04)
[2025-05-25] MEDS: multivitamin therapeutic Tablet 1 TAB PO (05:30)
[2025-05-25] MEDS: mupirocin oint 22 gm 1 APPLIC NASAL (05:31)
[2025-05-25] MEDS: chlorhexidine gluconate 0.12% Btl 473 mL 30 ML MUCOUS MEM ×3 (05:31→16:06)
[2025-05-25] MEDS: oxyCODONE 5 mg IR Tab/Cap PO ×3 (06:12→15:40)
[2025-05-25 06:15] LABS: Hematocrit 29.8 % (36-47); Hemoglobin 9.50 g/dL (11.27-16.99); Mean Corpuscular HGB Conc 31.9 g/dL (30-55); Mean Corpuscular Hemoglobin 28.5 pg (27-33); Mean Corpuscular Volume 89.5 fl (85-98); Nucleated Red Blood Cells % 0 %; Platelet Count 175 10^3/cmm (157-399); Red Blood Count 3.33 10^6/uL (3.85-5.65); White Blood Count 5.48 10^3/uL (3.29-11.43)
[2025-05-25 06:36] LABS: Anion Gap 14.0 (5-19); Blood Urea Nitrogen 16 mg/dL (8-23); Calcium 8.5 mg/dL (8.5-10.5); Carbon Dioxide 27 mmol/L (22-29); Chloride 102 mmol/L (98-107); Glucose 85 mg/dL (65-115); Osmolality Calculated 288 mOsm/kg (285-295); Potassium 4.0 mmol/L (3.5-5.1); Sodium 139 mmol/L (136-145)
[2025-05-25] MEDS: APIXABAN 2.5 MG TABLET PO (07:56)
--- NOTE | 2025-05-25 10:46 | PC.CHAP ---
Pastoral Care Encounter/Spiritual Assessment Type of Contact [] Declined field service supervisor visit [] Patient/Family/Request visit [] Outpatient visit [] Follow-up visit [] Physician referral [] Code/Alert [x] Routine visit [] Staff referral [] Actively dying [] Patient sleeping [] Family support [] [] Out of room [] Palliative care [] [] Receiving care in room [] Pre-surgical visit [] Trauma [] Long length of stay [] ICU visit [] Other: Relational/Emotional Strength [x] Patient feels connected with others/family/visitors/staff [] Distress [] Loneliness/isolation [] Abandonment Spirituality of Patient [x] Person of Sandi [] Attends Roman Catholic of their Sandi [x] Believes in Prayer [] Reads Bible or Holiness materials [] There are Spiritual issues to be addressed Senior Military Analyst Interventions [x] Prayer [x] Active listening [] Non-anxious presence [x] Spiritual/emotional support [] Crisis/trauma care [] Spiritual counseling [] Bereavement support [] Provided bereavement packet [] Provided Bible/devotional materials [] Provided toy/stuffed animal, coloring book to patient or family member [] Provided Communion [] Anointing/[place] [] Salvation [x] Completed spiritual assessment [] Other: Impact on Illness or Injury [] Angry [] Fearful [] Anxious [] Often cries [] Exhaustion [] Unable to work [] Unable to attend hoahaoism [] Unable to walk/stand [] Unable to read [] Unable to drive [] Unable to eat/drink [] Unable to sleep [] Unable to be with family [] Patient intubated [] Other: Summary Time spent with patient 5 min
--- NOTE | 2025-05-25 10:53 | PM.PN ---
Subjective Subjective: Joan Núñez is a 70 year old female with PMH of ASHD, HTN, AFIB (s/p ablation), HLD, DM 2T, hypothyroidism, breast cancer (in remission, s/p right total mastectomy), obesity (prior gastric sleeve), MDD, anxiety Hospital medicine following patient in regard to medical management. Patient with left DJD, s/p left knee arthroplasty 05/24/[address] Bowden, POD 1. Patient does not voice any issues or concerns today. Uneventful course of events overnight. VSS. Pain well controlled. No cardiac, pulmonary or GI concerns voiced. Vitals/I&O/Wt Last Vital Signs Temp 97.9 F 05/25/25 07:51 Pulse 71 05/25/25 07:51 Resp 18 05/25/25 07:51 BP 130/66 05/25/25 07:51 Pulse Ox 97 05/25/25 07:51 O2 Del Method Room Air 05/25/25 07:51 05/24/25 05/25/25 05/25/25 22:59 06:59 14:59 Intake Total 1630 / 3270 150 / 3420 1438.333 / 1438.333 Output Total 1650 / 2025 Balance 1630 / 2895 -1500 / 1395 1438.333 / 1438.333 Weight last 48 hrs Weight 86.75 kg Weight 80.966 kg Weight 81.193 kg Physical Exam Narrative: Constitutional: NAD Head: NC/AT Eyes: PERRLA, EOMI Ears: Normal external ears. Hearing intact to normal voice. Nose: Normal external nose. No epistaxis. Throat: MMM Respiratory: CTAB. No accessory muscle use. On room air. Cardiovascular: Regular Extremities: LLE trace edema DP 1+, RLE no edema DP 2+ Gastrointestinal: Soft. NT. ND. +BS Genitourinary: No portillo catheter Musculoskeletal: Knee wrapped in Kerlix. LLE elevated, supported by orthopedic device. Left distal sensation intact. Patient can wiggle toes. Urinary Catheter Management: Portillo: Cath Placed During This Visit: yes, but has since been removed by the nurse Reason for Continuing Indwelling Catheter: Perioperative Use in Selected Surgeries Urinary Catheter Date of Insertion: 05/24/25 Urinary Catheter Time of Insertion: 09:16 Date Urinary Catheter Removed: 05/25/25 Time Urinary Catheter Discontinued: 06:22 Data 05/25/25 11:41 05/25/25 06:01 Other Labs: Most recent labs reviewed, 05/25/25 0601 Hemogram WBC 5.48 RBC 3.33 PLT 175 HGB 9.50 HCT 29.8 Chemistry Na 139 K 4.0 Cl 102 Ca 8.5 Glu 85 CO2 27 AG 14 BUN 16 Cr 0.6 eGFR 98.8 A&P Assessment and plan 1. Left knee DJD: 2. Acute blood loss anemia: 3. Primary hypertension: 4. Diabetes mellitus type 2, noninsulin dependent: 5. Cardiomyopathy: 6. History of bariatric surgery: Plan: # Left knee DJD s/p left knee arthroplasty 05/24/2025, today POD 1 - Ortho primary and managing - Post-operative DVT prophylaxis with Eliquis 2.5 mg BID, to started 05/25/25, per ortho - Pain control, current regimen includes Tylenol 1000 mg IV Q8H x3 then stop Hydromorphone 0.5 mg IV Q4H prn Oxycodone IR 5 mg PO Q4H prn Tramadol 50 mg PO Q4H prn - Bowel regimen w/ sennosides?docusate and docusate - Incentive spirometer at bedside, encouraged - PT/OT consulted and working with patient - CBC, BMP from 05/25 reviewed electrolyte, metabolic and renal status stable no leukocytosis, marked HGB drop # Acute blood loss anemia Baseline HGB 12-13 g/dL. Presenting HGB 13.3 (05/24). Per record no substantial blood loss during surgical procedure. Asymptomatic. VSS. - Substantial HGB drop 3.8 g/dL. Repeat CBC to ensure accuracy given stable hemodynamic state. Continue trending HGB. 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 If persistently elevated, ie > 180, then will start SSI - HOLD metformin while inpatient. - HOLD glipizide, not on pharmacy's formulary list # Cardiomyopathy - Compensated # Hx of bariatric surgery Hx of a gastric sleeve Recommend against NSAIDS indefinitely. NSAIDS are not recommended in patient's with bariatric surgery (including gastric sleeve) because they significantly increase the risk of marginal ulcers, gastric sleeve ulcers, and anastomotic complications. Ketorolac d/c 05/24/25 from active pain med list. Today (05/25/25) discussed with patient in detail need to avoid NSAIDs. PDMP PDMP Reviewed: Not Reviewed Attestations Medical Necessity Statement*: Patient continues to require consulted for level evaluation and management. Reviewed interval events, vital signs, laboratory data, medication administration records and post-operative imaging as available today. Patient has ongoing medical issues including hypertension, diabetes, and cardiomyopathy. Management today involved evaluating current post-operative status / potential complications, as well as assessing hemodynamic stability, reviewing labs for electrolyte, metabolic, renal, infection and anemia trends. These decisions carry moderate medical risk and contribute meaningfully to the patient's overall care plan. Continue it web development consultant follow-up is medically necessary to support safe recovery, prevent complications and optimize postoperative at this time. Coding Level of Care Code 68075 Diagnoses Left knee DJD M17.12 Acute blood loss anemia D62 Primary hypertension I10 Diabetes mellitus type 2, noninsulin dependent E11.9 Cardiomyopathy I42.9 History of bariatric surgery Z98.84
[2025-05-25 12:03] LABS: Hemoglobin 10.10 g/dL (11.27-16.99)
--- NOTE | 2025-05-25 18:10 | P.DS_ITS ---
Discharge Providers Date of Admission: 05/24/25 10:53 Date of Discharge: May 25, 2025 Attending Provider at Admission: Jb Ervin DO Attending Provider at Discharge: Jb Ervin DO Consults: Hospitalist team Primary Care Provider: Jm Velez MD Diagnoses at Discharge Discharge Diagnosis 1. Acute blood loss anemia: 2. Primary hypertension: 3. Diabetes mellitus type 2, noninsulin dependent: 4. Cardiomyopathy: 5. History of bariatric surgery: 6. Status post total left knee replacement using cement: Reason for Visit Reason for Visit: M17.12 Brief History: Status post left total knee arthroplasty?[facility] robotic assisted Hospital Course Hospital Course Patient presented to the preoperative holding area with plan for left total knee arthroplasty after patient has been worked up in the outpatient setting for failed conservative treatment of left knee degenerative joint disease. Once cleared by anesthesia for surgery patient subsequently was taken back to the operative suite underwent anesthesia per anesthesia department and then subsequently underwent a left total knee arthroplasty. Procedure was performed without any complications patient was taken to PACU in stable condition patient recovered well in PACU and then was admitted to the floor postoperatively internal medicine was consulted and on board for medical management and as sistance with care. Patient received appropriate PT/OT, postoperative antibiotics, pain control, postoperative DVT prophylaxis. Elevation and ice. Patient encouraged for knee range of motion allowed weightbearing as tolerated to the operative lower extremity. Dressing was changed as needed, labs were monitored daily. Patient recovered well postoperatively and worked well and progressed well with therapy. It was determined on postoperative day 1 the patient was stable for discharge from an orthopedic standpoint and medicine. Patient was comfortable with discharge and plan was discharged home. Patient received appropriate discharge instructions as well as pain medication and DVT prophylaxis postoperatively. Given appropriate instructions for dressing management. Patient will follow-up with Dr. Ervin/orthopedics in the office in 2 weeks. All questions answered. Understand if there is any issues questions or concerns and contact the office. Physical Exam Narrative: Left knee examination: Dressing on in place, clean dry and intact. No evidence of saturation. Patient has normal postoperative swelling and tenderness to palpation to the knee. Compartments are soft compressible,'s calf soft and nontender. Sensations intact to light touch distally. Distal pulses are palpable. Patient is able to wiggle toes as well as plantarflex and dorsiflex ankle. Urinary Catheter Management: Garzon: Cath Placed During This Visit: yes, but has since been removed by the nurse Reason for Continuing Indwelling Catheter: Perioperative Use in Selected Surgeries Urinary Catheter Date of Insertion: 05/24/25 Urinary Catheter Time of Insertion: 09:16 Date Urinary Catheter Removed: 05/25/25 Time Urinary Catheter Discontinued: 06:22 Discharge Data Studies Completed and Pending Completed Studies During Hospitalization Category Date Time Status XR knee LT 1-2V 22660 Routine Exams 05/24/25 11:02 Completed Pending at discharge Category Date Time Status Basic Metabolic Panel AM LABS Lab 05/26/25 04:00 Ordered Basic Metabolic Panel AM LABS Lab 05/27/25 04:00 Ordered Complete Blood Count w/Auto AM LABS Lab 05/26/25 04:00 Ordered Complete Blood Count w/Auto AM LABS Lab 05/27/25 04:00 Ordered Radiology Impressions Knee X-Ray 05/24/25 11:02 IMPRESSION: Status post left knee arthroplasty without evidence of hardware failure. Laboratory Results WBC 5.48 10^3/uL (3.29-11.43) 05/25/25 06:01 RBC 3.33 10^6/uL (3.85-5.65) L 05/25/25 06:01 Hgb 10.10 g/dL (11.27-16.99) L 05/25/25 11:41 Hct 29.8 % (36-47) L 05/25/25 06:01 MCV 89.5 fl (85-98) 05/25/25 06:01 MCH 28.5 pg (27-33) 05/25/25 06:01 MCHC 31.9 g/dL (30-55) 05/25/25 06:01 RDW 14.8 % (12.1-15.1) 05/25/25 06:01 Plt Count 175 10^3/cmm (157-399) 05/25/25 06:01 MPV 9.7 fL (7.4-10.4) 05/25/25 06:01 Neut % (Auto) 64.5 % 05/25/25 06:01 Lymph % (Auto) 25.2 % 05/25/25 06:01 [place] % (Auto) 8.8 % 05/25/25 06:01 Eos % (Auto) 0.9 % 05/25/25 06:01 Baso % (Auto) 0.4 % 05/25/25 06:01 Neut # (Auto) 3.54 10^3/uL (1.8-7.7) 05/25/25 06:01 Lymph # (Auto) 1.4 10^3/uL (0.8-4.8) 05/25/25 06:01 [place] # (Auto) 0.5 10^3/uL (0.2-0.9) 05/25/25 06:01 Eos # (Auto) 0.1 10^3/uL (0.0-0.8) 05/25/25 06:01 Baso # (Auto) 0.0 10^3/uL (0.0-0.1) 05/25/25 06:01 Nucleated RBC % (auto) 0 % 05/25/25 06:01 Nucleated RBCs # 0.0 /100WBC 05/25/25 06:01 Sodium 139 mmol/L (136-145) 05/25/25 06:01 Potassium 4.0 mmol/L (3.5-5.1) 05/25/25 06:01 Chloride 102 mmol/L (98-107) 05/25/25 06:01 Carbon Dioxide 27 mmol/L (22-29) 05/25/25 06:01 Anion Gap 14.0 (5-19) 05/25/25 06:01 BUN 16 mg/dL (8-23) 05/25/25 06:01 Creatinine 0.6 mg/dL (0.5-0.9) 05/25/25 06:01 GFR Calculation 98.8 mL/min (90-130) 05/25/25 06:01 Glucose 85 mg/dL (65-115) 05/25/25 06:01 POC Glucose 159 mg/dL (70-110) H 05/25/25 16:22 Calculated Osmolality 288 mOsm/kg (285-295) 05/25/25 06:01 Calcium 8.5 mg/dL (8.5-10.5) 05/25/25 06:01 Blood Type A Positive 05/24/25 08:05 Rho(D) Type Rh positive 05/24/25 08:05 Antibody Screen Negative 05/24/25 08:05 Vitals Last Vital Signs Temp 98.0 F 05/25/25 15:53 Pulse 85 05/25/25 15:53 Resp 18 05/25/25 15:53 BP 166/71 05/25/25 15:53 Pulse Ox 99 05/25/25 15:53 O2 Del Method Room Air 05/25/25 15:53 Discharge Plan Discharge Patient Disposition: Home Health Service Condition: Stable Prescriptions: New cyclobenzaprine 10 mg tablet 10 mg PO TID PRN (Reason: muscle spasm) 7 Days Qty: 21 0RF cefadroxil 500 mg capsule 500 mg PO BID 7 Days Qty: 14 0RF oxycodone 5 mg tablet 5 mg PO Q6H PRN (Reason: pain postop) 7 Days Qty: 28 0RF calcium carbonate-vitamin D3 [Calcium 600 + D(3)] 600 mg-10 mcg (400 unit) tablet 1 tab PO DAILY 30 Days Qty: 30 0RF Eliquis 2.5 mg tablet 2.5 mg PO BID 14 Days Qty: 28 0RF Continued (DME) Diabetic Shoes with 3 pairs of molded inserts See Rx Instructions .ROUTE .MEDSUPPLY Qty: 1 0RF Rx Instructions: As directed (DME) Diabetic shoes with inserts See Rx Instructions .Route .MEDSUPPLY Qty: 1 0RF Rx Instructions: As directed (DME) cuff and collar brace See Rx Instructions .Route .MEDSUPPLY Qty: 1 0RF Rx Instructions: As directed (DME) diabetic shoes with 3 inserts See Rx Instructions .Route .MEDSUPPLY Qty: 1 0RF Rx Instructions: As directed to HOME magnesium oxide 400 mg magnesium capsule 400 mg PO BID 90 Days Qty: 180 1RF (DME) left knee medial slipman brace See Rx Instructions .Route .MEDSUPPLY Qty: 1 0RF Rx Instructions: As directed metformin 500 mg tablet extended release 24 hr 500 mg PO BID 90 Days Qty: 180 1RF glipizide 5 mg tablet extended release 24hr 5 mg PO DAILY Qty: 180 2RF (DME) Blood Glucose Test Strip See Rx Instructions .Route Qty: 100 3RF Rx Instructions: As directed potassium chloride 10 mEq tablet extended release 10 meq PO DAILY Rx Instructions: TAKE 1 TABLET DAILY allopurinol 300 mg tablet 300 mg PO DAILY Rx Instructions: TAKE 1 TABLET DAILY 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 Process 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 OK for DC: Hospitalist Discharge Order = DC NOW: Discharge Order (Routine); Ordered 05/25/25 Ordered By: Jb Ervin Referrals: [facility] [Outside] Michael Ervin PA [Physician Platform Material Handling Supervisor, Orthopedics] - 06/08/25 2:45 pm Discharge Diet: Regular Discharge Activity: Limit activity as instructed Patient Instructions: Cefadroxil (By mouth), Cyclobenzaprine (By mouth) (Flexeril, Amrix, Fexmid, FusePaq..., Oxycodone, Rapid Release (By mouth), Apixaban (By mouth), Acute Wound Care (DC), Total Knee Replacement (GEN), Opioid Safety, Post Anesthesia Care, Patient Portal & Shaji Instructions Activity Restrictions/Additional Instructions: Orthopedic discharge instructions: Tolu Dressing--Keep dressing on and dry. After 3 days you can remove some of the dressing and shower. disconnect battery pack when showering. Tolu dressing will stay on until follow up appt in 2 weeks. The battery pack for the dressing will at 5-7 days. Battery pack can be removed and discarded once batteries . Patient may weight-bear as tolerate to the operative extremity Utilize walker as needed Encourage knee range of motion Ice and elevate as needed for pain and swelling Take pain medication as prescribed Take antinausea medication as needed Take antibiotic as prescribed for infection prevention Utilize incentive spirometry 10 times every hour n Pain medication can cause constipation. take [id number] stool softeners and or MiraLAX. Take prescribed Eliquis twice daily for the next 14 days for blood clot prevention May supplement for pain with Tylenol [id number] as needed(1000 mg every 8 hours-do not exceed more than 3000mg in 24-hour period) No baths or soaks Follow-up in the orthopedic office in 2 weeks Contact the office for any questions or concerns Will need follow-up HGB draw on 05/27/25 Recommend against use of NSAIDs indefinitely Discharge Attestations Time Spent in Discharge Care*: less than 30 min Quality Metrics Clinical Quality Measures [ No reported AMI, CVA or VTE this stay] Coding Level of Care Code Acute Code for Chg Fwd Diagnoses Acute blood loss anemia D62 Primary hypertension I10 Diabetes mellitus type 2, noninsulin dependent E11.9 Cardiomyopathy I42.9 History of bariatric surgery Z98.84 Status post total left knee replacement using cement Z96.652
[2025-05-26 06:33] VITALS: BP 166/71; PULSE 85; RESP 18; TEMP 36.7; O2SAT 99
== END 2025-05-25 19:00 | disposition home health service (06) ==
LOC: MEDSURG 10:53
PROVIDERS: Nurse Practitioner Gerontology; Physician Assistant; Admitting Provider Student in an Organized Health Care Education/Training Program; PCP Family Medicine; Visit Provider Student in an Organized Health Care Education/Training Program
PROC: 8E0Y0CZ Robotic Assisted Procedure of Lower Extremity, Open Approach (ICD-10-PCS; CPT 27447; principal; 2025-05-24 09:15)
DX: M17.12 Unilateral primary osteoarthritis, left knee (principal); E78.5 Hyperlipidemia, unspecified; E03.9 Hypothyroidism, unspecified; E11.9 Type 2 diabetes mellitus without complications; I25.10 Atherosclerotic heart disease of native coronary artery without angina pectoris; G62.9 Polyneuropathy, unspecified; I10 Essential (primary) hypertension; Z85.3 Personal history of malignant neoplasm of breast; D62 Acute posthemorrhagic anemia; I42.9 Cardiomyopathy, unspecified; Z98.84 Bariatric surgery status; I48.91 Unspecified atrial fibrillation; E66.9 Obesity, unspecified; Z68.33 Body mass index [BMI] 33.0-33.9, adult; Z79.84 Long term (current) use of oral hypoglycemic drugs; I49.9 Cardiac arrhythmia, unspecified; I73.9 Peripheral vascular disease, unspecified; Z86.73 Personal history of transient ischemic attack (TIA), and cerebral infarction without residual deficits
CPT/HCPCS: 27447; 20985; 36415; 36416; 51702; 73560; 80048; 82962; 85018; 85025; 86850; 86900; 93005; 96372; 97116; 97161; 97165; 97530; 97760; A4216; C1713; C1776; G0378; J0131; J0169; J0690; J1100; J1171; J1815; J1885; J2250; J2405; J2704; J2795; J3010; J3373; J3490; J7030; J7120; J9999; L8699

== ENCOUNTER → 2025-06-08 14:34 | Outpatient (BNVA) | payer MEDICARE, SELFPAY | PROVIDERS: PCP Family Medicine; Visit Provider Physician Assistant | DX: Z98.890 Other specified postprocedural states (principal); Z96.652 Presence of left artificial knee joint | CPT/HCPCS: 73560; 73565; 99024 ==